=== PATIENT | male | born 1945 | race Caucasian/White ===

== ENCOUNTER 2016-07-26 08:58 | Outpatient (CLI) | payer MEDICARE, BC | END 2016-07-26 08:59 | disposition home or self-care (01) | DX: E11.9 Type 2 diabetes mellitus without complications (principal); E78.2 Mixed hyperlipidemia; I10 Essential (primary) hypertension; Z79.899 Other long term (current) drug therapy | CPT/HCPCS: 36415; 80053; 80061; 83036; 84443; 85025; G0103 ==

== ENCOUNTER 2016-12-06 06:15 | Day surgery (SDC) | payer MEDICARE, BC ==
[2016-12-06] MEDS ORDERED: LACTATED RINGERS 1,000 ML IV ONE (06:35)
[2016-12-06] MEDS ORDERED: MIDAZOLAM 2 MG/2 ML VIAL IVP ONE (07:37)
[2016-12-06] MEDS ORDERED: fentaNYL 100 MCG/2 ML VIAL IVP ONE (07:37)
[2016-12-06 08:52] VITALS: BP 134/68
== END 2016-12-06 06:16 | disposition home or self-care (01) ==
LOC: SDS 06:15
PROVIDERS: ATTEND Surgery
PROC: 0DJD8ZZ Inspection of Lower Intestinal Tract, Via Natural or Artificial Opening Endoscopic (ICD-10-PCS; principal; 2016-12-06 07:30)
DX: Z12.11 Encounter for screening for malignant neoplasm of colon (principal); Z86.010 Personal history of colon polyps; K64.8 Other hemorrhoids; E11.9 Type 2 diabetes mellitus without complications; E78.5 Hyperlipidemia, unspecified; I25.10 Atherosclerotic heart disease of native coronary artery without angina pectoris; I25.2 Old myocardial infarction; G47.33 Obstructive sleep apnea (adult) (pediatric); Z79.4 Long term (current) use of insulin; Z79.82 Long term (current) use of aspirin
CPT/HCPCS: G0105; J7120

== ENCOUNTER 2017-01-25 07:23 | Outpatient (CLI) | payer MEDICARE, BC ==
[2017-01-25 12:31] LABS: HEMOGLOBIN A1C 1.36 g/dL
== END 2017-01-25 07:24 | disposition home or self-care (01) ==
LOC: LAB.F 07:23
PROVIDERS: ATTEND Internal Medicine
DX: E11.9 Type 2 diabetes mellitus without complications (principal)
CPT/HCPCS: 36415; 83036

== ENCOUNTER 2017-04-06 15:45 | Outpatient (CLI) | payer MEDICARE, BC | END 2017-04-06 23:59 | LOC: LAB.R 15:45 | PROVIDERS: ATTEND Internal Medicine | DX: Z01.818 Encounter for other preprocedural examination (principal); E10.9 Type 1 diabetes mellitus without complications | CPT/HCPCS: 87640 ==

== ENCOUNTER 2017-04-07 10:00 | Outpatient (CLI) | payer MEDICARE, BC ==
[2017-04-07 18:30] LABS: BASOPHILS # (AUTO) 0.1 10^3/uL (0.0-0.1); BASOPHILS % (AUTO) 0.8 %; EOSINOPHILS # (AUTO) 0.1 10^3/uL (0.0-0.7); EOSINOPHILS % (AUTO) 1.2 %; HGB - HEMOGLOBIN 14.5 g/dL (14.0-18.0); LYMPHOCYTES # (AUTO) 2.9 10^3/uL (1.5-3.5); LYMPHOCYTES % (AUTO) 33.6 %; MEAN CORPUSCULAR HEMOGLOBIN 30.1 pg (27.0-31.0); MEAN CORPUSCULAR VOLUME 91.3 fL (80.0-94.0); MEAN PLATELET VOLUME 9.5 fL (7.4-11.4); MONOCYTES # (AUTO) 0.7 10^3/uL (0.0-1.0); MONOCYTES % (AUTO) 8.6 %; NEUTROPHILS # (AUTO) 4.8 10^3/uL (1.5-6.6); NEUTROPHILS % (AUTO) 55.8 %; RED BLOOD COUNT 4.81 10^6/uL (4.70-6.10); RED CELL DISTRIBUTION WIDTH 13.2 % (12.0-15.0); UNCORRECTED WHITE BLOOD COUNT 8.6 x10^3/uL; WHITE BLOOD COUNT 8.6 x10^3/uL (4.8-10.8)
[2017-04-07 18:50] LABS: ALBUMIN/GLOBULIN RATIO 1.1 (1.0-2.2); BILIRUBIN,TOTAL 0.7 mg/dL (0.2-1.0); CALCIUM 9.2 mg/dL (8.5-10.3); CREATININE 0.8 mg/dL (0.6-1.2); POTASSIUM 3.9 mmol/L (3.5-5.0); TOTAL PROTEIN 7.3 g/dL (6.7-8.2)
== END 2017-04-07 10:01 | disposition home or self-care (01) ==
LOC: LAB.F 10:00
PROVIDERS: ATTEND Internal Medicine
DX: E10.9 Type 1 diabetes mellitus without complications (principal)
CPT/HCPCS: 36415; 80053; 85025

== ENCOUNTER 2017-09-01 07:24 | Outpatient (CLI) | payer MEDICARE, BC ==
[2017-09-01 10:37] LABS: ALBUMIN 4.4 g/dL (3.2-5.5); ALBUMIN/GLOBULIN RATIO 1.6 (1.0-2.2); ALKALINE PHOSPHATASE 43 IU/L (42-121); ALT ALANINE AMINOTRANSFERASE 42 IU/L (10-60); AST ASPARTATE AMINOTRANSFERASE 30 IU/L (10-42); BUN - BLOOD UREA NITROGEN 18 mg/dL (6-20); CALCIUM 9.1 mg/dL (8.5-10.3); CARBON DIOXIDE - CO2 26 mmol/L (21-32); CHLORIDE 104 mmol/L (101-111); CHOL/HDL RATIO 2.7 (<5.0); CHOLESTEROL 114 mg/dL; CREATININE 0.8 mg/dL (0.6-1.2); GFR - MDRD 96 (>89); GLUCOSE 140 mg/dL (70-100); HDL CHOLESTEROL 42 mg/dL; LDL CHOLESTEROL,CALCULATED 59 mg/dL; LDL/HDL RATIO 1.4 (<3.6); SODIUM 137 mmol/L (135-145); TOTAL PROTEIN 7.1 g/dL (6.7-8.2); VLDL CHOLESTEROL 13 mg/dL
[2017-09-01 10:45] LABS: BASOPHILS % (AUTO) 0.7 %; EOSINOPHILS # (AUTO) 0.3 10^3/uL (0.0-0.7); EOSINOPHILS % (AUTO) 3.8 %; HGB - HEMOGLOBIN 14.7 g/dL (14.0-18.0); LYMPHOCYTES # (AUTO) 1.9 10^3/uL (1.5-3.5); LYMPHOCYTES % (AUTO) 28.8 %; MEAN CORPUSCULAR HEMOGLOBIN 30.2 pg (27.0-31.0); MEAN CORPUSCULAR HGB CONC 33.8 g/dL (32.0-36.0); MEAN CORPUSCULAR VOLUME 89.4 fL (80.0-94.0); MEAN PLATELET VOLUME 9.3 fL (7.4-11.4); MONOCYTES # (AUTO) 0.7 10^3/uL (0.0-1.0); MONOCYTES % (AUTO) 10.5 %; NEUTROPHILS # (AUTO) 3.8 10^3/uL (1.5-6.6); NEUTROPHILS % (AUTO) 56.2 %; PLT - PLATELET COUNT 191 10^3/uL (130-450); RED BLOOD COUNT 4.87 10^6/uL (4.70-6.10); RED CELL DISTRIBUTION WIDTH 13.5 % (12.0-15.0); WHITE BLOOD COUNT 6.7 x10^3/uL (4.8-10.8)
[2017-09-01 10:53] LABS: HB2 TOTAL 16.3 g/dL; HEMOGLOBIN A1C 0.97 g/dL; HEMOGLOBIN A1C % 7.6 % (4.6-6.2)
[2017-09-02 09:02] LABS: HEPATITIS C ANTIBODY NON-REACTIVE (NON-REACTIVE)
== END 2017-09-01 07:25 | disposition home or self-care (01) ==
LOC: LAB.F 07:24
PROVIDERS: ATTEND Internal Medicine
DX: C43.30 Malignant melanoma of unspecified part of face (principal); E10.9 Type 1 diabetes mellitus without complications; I25.10 Atherosclerotic heart disease of native coronary artery without angina pectoris; E78.5 Hyperlipidemia, unspecified
CPT/HCPCS: 36415; 80053; 80061; 83036; 83721; 85025; 86803

== ENCOUNTER 2017-12-12 07:43 | Outpatient (CLI) | payer MEDICARE, BC ==
[2017-12-12 12:06] LABS: ALT ALANINE AMINOTRANSFERASE 39 IU/L (10-60); AST ASPARTATE AMINOTRANSFERASE 28 IU/L (10-42); LDL CHOLESTEROL,DIRECT 71 mg/dL
[2017-12-12 12:11] LABS: HB2 TOTAL 15.7 g/dL; HEMOGLOBIN A1C 0.89 g/dL; HEMOGLOBIN A1C % 7.3 % (4.6-6.2)
== END 2017-12-12 07:44 | disposition home or self-care (01) ==
LOC: LAB.F 07:43
PROVIDERS: ATTEND Internal Medicine
DX: E78.5 Hyperlipidemia, unspecified (principal); E10.9 Type 1 diabetes mellitus without complications
CPT/HCPCS: 36415; 83036; 83721; 84450; 84460

== ENCOUNTER 2018-03-17 12:41 | Outpatient (CLI) | payer MEDICARE, BC ==
[2018-03-17 18:14] LABS: HB2 TOTAL 15.3 g/dL; HEMOGLOBIN A1C 0.88 g/dL; HEMOGLOBIN A1C % 7.4 % (4.6-6.2)
== END 2018-03-17 12:42 | disposition home or self-care (01) ==
LOC: LAB.F 12:41
PROVIDERS: ATTEND Internal Medicine
DX: E10.9 Type 1 diabetes mellitus without complications (principal)
CPT/HCPCS: 36415; 83036

== ENCOUNTER 2018-04-27 18:44 | Inpatient (IN) | payer MEDICARE, BC ==
[2018-04-27 19:35] LABS: BASOPHILS % (AUTO) 0.3 %; HGB - HEMOGLOBIN 14.6 g/dL (14.0-18.0); LYMPHOCYTES % (AUTO) 3.7 %; MEAN CORPUSCULAR HEMOGLOBIN 30.8 pg (27.0-31.0); MEAN CORPUSCULAR VOLUME 90.7 fL (80.0-94.0); MEAN PLATELET VOLUME 8.6 fL (7.4-11.4); PLT - PLATELET COUNT 194 10^3/uL (130-450); RED BLOOD COUNT 4.72 10^6/uL (4.70-6.10); RED CELL DISTRIBUTION WIDTH 13.4 % (12.0-15.0); WHITE BLOOD COUNT 20.3 x10^3/uL (4.8-10.8)
[2018-04-27 19:38] LABS: ABNORMAL LYMPHS % (MANUAL) 0 %
[2018-04-27 19:41] LABS: ALBUMIN/GLOBULIN RATIO 1.2 (1.0-2.2); ALKALINE PHOSPHATASE 42 IU/L (42-121); ALT ALANINE AMINOTRANSFERASE 30 IU/L (10-60); AST ASPARTATE AMINOTRANSFERASE 34 IU/L (10-42); BILIRUBIN,TOTAL 1.7 mg/dL (0.2-1.0); BUN - BLOOD UREA NITROGEN 23 mg/dL (6-20); CARBON DIOXIDE - CO2 23 mmol/L (21-32); CHLORIDE 99 mmol/L (101-111); CREATININE 1.1 mg/dL (0.6-1.2); GFR - MDRD 66 (>89); GLUCOSE 185 mg/dL (70-100); LIPASE 22 U/L (22-51); SODIUM 133 mmol/L (135-145); TOTAL PROTEIN 7.3 g/dL (6.7-8.2)
--- NOTE | 2018-04-27 20:08 | ED Physician Documentation ---
History of Present Illness - Stated complaint Stated Complaint: DIABETIC/FEVER/SWOLLEN L LEG - Chief complaint Chief Complaint: Neuro - History obtained from History obtained from: Family - History of Present Illness Timing: Last night Pain level now: 6 Improved by: nothing Worsened by: no exacerbating factors - Additonal information Additional information: lethargic since last night with sweats/chills. Family noted Tmax of 103 earlier today (approximately 5 PM today). he has had left leg redness since Tuesday. patient's chief c/o is generalized weakness and severe fatigue. Family says he is usually very active Review of Systems Constitutional: reports: Fever, Chills, Fatigue, Sweats Eyes: reports: Reviewed and negative Ears: reports: Reviewed and negative Nose: reports: Reviewed and negative Throat: reports: Reviewed and negative Cardiac: reports: Reviewed and negative Respiratory: reports: Cough. denies: Dyspnea GI: reports: Reviewed and negative : denies: Dysuria, Frequency Skin: reports: Rash (LLE) Musculoskeletal: reports: Extremity pain (LLE), Extremity swelling Neurologic: reports: Generalized weakness, Altered mental status (lethargic). denies: Focal weakness, Numbness, Confused, Headache PD PAST MEDICAL HISTORY - Past Medical History Cardiovascular: Hypertension, Coronary artery disease, Angina Respiratory: Sleep apnea Endocrine/Autoimmune: Type 2 diabetes GI: None, Colon polyps : None HEENT: Macular degeneration Psych:  Musculoskeletal: Osteoarthritis Derm: None, Other - Past Surgical History General: Cholecystectomy, Colonoscopy Ortho: Spine surgery, Other Cardiovascular: CABG HEENT: Other Derm: Skin cancer surgery - Present Medications Home Medications: Ambulatory Orders Medication Instructions Recorded Confirmed Aspirin [Aspir 81] 81 mg PO QPM 07/16/14 10/03/17 Atorvastatin Calcium [Lipitor] 20 mg PO DAILY PM 07/16/14 10/03/17 Insulin Glargine,Hum.rec.anlog 40 unit SQ BID 07/16/14 10/03/17 [Lantus] Losartan [Cozaar] 50 mg PO BID 07/16/14 10/03/17 Multivitamin [Multi-Vitamin Daily] 1 tab PO DAILY 07/16/14 10/03/17 [place]-3 Fatty Acids/Fish Oil [Fish 2 each PO DAILY 07/16/14 10/03/17 Oil 1,000 mg Capsule] Fenofibrate Nanocrystallized 145 mg PO DAILY 12/03/16 10/03/17 [Fenofibrate] Sildenafil Citrate [Sildenafil] 80 - 100 mg PO PRN PRN 03/02/17 10/03/17 Insulin Aspart [Novolog] 5 unit SQ AC 04/06/17 10/03/17 - Allergies Allergies/Adverse Reactions: Allergies Allergy/AdvReac Type Severity Reaction Status Date / Time Horse/Equine Containing Allergy Respiratory Verified 04/27/18 19:19 Products metformin Allergy Edema Verified 04/27/18 19:19 Tetanus Vaccines and Toxoid Allergy Respiratory Verified 04/27/18 19:19 [Tetanus Vaccines & Toxoid] - Social History Does the pt smoke?: No Smoking Status: Former smoker Does the pt drink ETOH?: Yes Does the pt have substance abuse?: No - Immunizations Immunizations are current?: No - POLST Patient has POLST: No PD ED PE NORMAL - Vitals Vital signs reviewed: Yes - General General: Other (overweight. lethargic; he arouses to voice, answers quietly with short but appropriate answers. He follows commands but needs to be rewoken at times) - HEENT HEENT: PERRL, EOMI, Other (dry mucous membranes) - Neck Neck: Supple, no meningeal sign - Cardiac Cardiac: RRR, No murmur - Respiratory Respiratory: No respiratory distress, Clear bilaterally - Abdomen Abdomen: Normal bowel sounds, Soft, Non tender, Non distended - Extremities Extremities: No tenderness to palpate - Neuro Eye Opening: To Voice Motor: Obeys Commands Verbal: Oriented GCS Score: 14 PD ED PE EXPANDED - Extremities SOM LE visual: 1 - rash (confluent erythema, hot to touch), swelling, tenderness Results - Vitals Vitals: Vital Signs - 24 hr 04/27/18 04/27/18 18:57 22:17 Temperature 37 C Heart Rate 97 103 H Respiratory 25 H Rate Blood Pressure 143/70 H 106/64 O2 Saturation 94 96 Oxygen O2 Source Room air - Labs Labs: Laboratory Tests 04/27/18 04/27/18 04/27/18 19:04 19:13 19:13 WBC 20.3 H RBC 4.72 Hgb 14.6 Hct 42.8 MCV 90.7 MCH 30.8 MCHC 34.0 RDW 13.4 Plt Count 194 MPV 8.6 Neut # (Auto) Not Reportable Lymph # (Auto) Not Reportable Cannon # (Auto) Not Reportable Eos # (Auto) Not Reportable Baso # (Auto) Not Reportable Absolute Nucleated RBC Not Reportable Total Counted 100 Band Neuts % (Manual) 16 H Abnorm Lymph % (Manual) 0 Nucleated RBC % Not Reportable Neutrophils # (Manual) 18.7 H Lymphocytes # (Manual) 0.4 L Monocytes # (Manual) 1.2 H Eosinophils # (Manual) 0.0 Basophils # (Manual) 0.0 Differential Comment MANUAL DIFFERENTIAL Manual Slide Review Indicated WBC Morphology NORMAL APPEARANCE Platelet Estimate NORMAL (130-450,000) Platelet Morphology NORMAL APPEARANCE RBC Morph Micro Appear NORMAL APPEARANCE Sodium 133 L Potassium 3.4 L Chloride 99 L Carbon Dioxide 23 Anion Gap 11.0 BUN 23 H Creatinine 1.1 Estimated GFR (MDRD) 66 L Glucose 185 H POC Whole Bld Glucose 187 H Glycated Hemoglobin Estim Average Glucose Lactic Acid Calcium 9.0 Total Bilirubin 1.7 H AST 34 ALT 30 Alkaline Phosphatase 42 Total Protein 7.3 Albumin 4.0 Globulin 3.3 Albumin/Globulin Ratio 1.2 Lipase 22 Urine Color Urine Clarity Urine pH Ur Specific Hudson Urine Protein Urine Glucose (UA) Urine Ketones Urine Occult Blood Urine Nitrite Urine Bilirubin Urine Urobilinogen Ur Leukocyte Esterase Urine RBC Urine WBC Ur Squamous Epith Cells Urine Bacteria Ur Microscopic Review Urine Culture Comments Serum Ketones NEGATIVE Influenza A (Rapid) Influenza B (Rapid) 04/27/18 04/27/18 04/27/18 19:14 20:41 20:45 WBC RBC Hgb Hct MCV MCH MCHC RDW Plt Count MPV Neut # (Auto) Lymph # (Auto) Cannon # (Auto) Eos # (Auto) Baso # (Auto) Absolute Nucleated RBC Total Counted Band Neuts % (Manual) Abnorm Lymph % (Manual) Nucleated RBC % Neutrophils # (Manual) Lymphocytes # (Manual) Monocytes # (Manual) Eosinophils # (Manual) Basophils # (Manual) Differential Comment Manual Slide Review WBC Morphology Platelet Estimate Platelet Morphology RBC Morph Micro Appear Sodium Potassium Chloride Carbon Dioxide Anion Gap BUN Creatinine Estimated GFR (MDRD) Glucose POC Whole Bld Glucose Glycated Hemoglobin 7.4 H Estim Average Glucose 166 H Lactic Acid 1.5 Calcium Total Bilirubin AST ALT Alkaline Phosphatase Total Protein Albumin Globulin Albumin/Globulin Ratio Lipase Urine Color YELLOW Urine Clarity CLEAR Urine pH 7.0 Ur Specific Hudson 1.025 Urine Protein 100 H Urine Glucose (UA) NEGATIVE Urine Ketones NEGATIVE Urine Occult Blood SMALL H Urine Nitrite NEGATIVE Urine Bilirubin NEGATIVE Urine Urobilinogen 0.2 (NORMAL) Ur Leukocyte Esterase NEGATIVE Urine RBC 0-5 Urine WBC 0-3 Ur Squamous Epith Cells NONE SEEN Urine Bacteria None Seen Ur Microscopic Review INDICATED Urine Culture Comments NOT INDICATED Serum Ketones Influenza A (Rapid) Influenza B (Rapid) 04/27/18 21:46 WBC RBC Hgb Hct MCV MCH MCHC RDW Plt Count MPV Neut # (Auto) Lymph # (Auto) Cannon # (Auto) Eos # (Auto) Baso # (Auto) Absolute Nucleated RBC Total Counted Band Neuts % (Manual) Abnorm Lymph % (Manual) Nucleated RBC % Neutrophils # (Manual) Lymphocytes # (Manual) Monocytes # (Manual) Eosinophils # (Manual) Basophils # (Manual) Differential Comment Manual Slide Review WBC Morphology Platelet Estimate Platelet Morphology RBC Morph Micro Appear Sodium Potassium Chloride Carbon Dioxide Anion Gap BUN Creatinine Estimated GFR (MDRD) Glucose POC Whole Bld Glucose Glycated Hemoglobin Estim Average Glucose Lactic Acid Calcium Total Bilirubin AST ALT Alkaline Phosphatase Total Protein Albumin Globulin Albumin/Globulin Ratio Lipase Urine Color Urine Clarity Urine pH Ur Specific [place] Urine Protein Urine Glucose (UA) Urine Ketones Urine Occult Blood Urine Nitrite Urine Bilirubin Urine Urobilinogen Ur Leukocyte Esterase Urine RBC Urine WBC Ur Squamous Epith Cells Urine Bacteria Ur Microscopic Review Urine Culture Comments Serum Ketones Influenza A (Rapid) Negative Influenza B (Rapid) Negative - Rads (name of study) chest xray Radiology: Prelim report reviewed, See rad report PD MEDICAL DECISION MAKING - ED course Complexity details: reviewed results, re-evaluated patient, considered differential, d/w patient, d/w family Departure - Departure Disposition: 66 [facility] DC/Xfer Clinical Impression: Cellulitis of leg, left, Weakness Condition: Fair Discharge Date/Time: 04/27/18 23:30
[2018-04-27 20:14] LABS: BAND NEUTROPHILS % (MANUAL) 16 %; DIFFERENTIAL COMMENT MANUAL DIFFERENTIAL; LYMPHOCYTES # (MANUAL) 0.4 10^3/uL (1.5-3.5); LYMPHOCYTES % (MANUAL) 2 %; MONOCYTES # (MANUAL) 1.2 10^3/uL (0.0-1.0); NEUTROPHILS # (MANUAL) 18.7 10^3/uL (1.5-6.6); NEUTROPHILS % (MANUAL) 76 %; PLATELET ESTIMATE, MANUAL NORMAL (130-450,000) (NORMAL); PLATELET MORPHOLOGY NORMAL APPEARANCE (NORMAL); RBC MORPHOLOGY (MULTIPLE) NORMAL APPEARANCE (NORMAL)
[2018-04-27 20:32] LABS: KETONES, SERUM (ACETEST) NEGATIVE (NEGATIVE)
[2018-04-27] MEDS ORDERED: SODIUM CHLORIDE 0.9% 1,000 ML IV STA (20:39)
[2018-04-27 21:04] LABS: BILIRUBIN,URINE NEGATIVE (NEGATIVE); GLUCOSE, URINE (UA) NEGATIVE (NEGATIVE); KETONES,URINE (UA) NEGATIVE (NEGATIVE); LEUKOCYTE ESTERASE, URINE NEGATIVE (NEGATIVE); NITRITE,URINE NEGATIVE (NEGATIVE); OCCULT BLOOD,URINE SMALL (NEGATIVE); PROTEIN,URINE 100 mg/dL (NEGATIVE); UROBILINOGEN,URINE 0.2 (NORMAL) E.U./dL (NORMAL)
[2018-04-27 21:05] LABS: CLARITY,URINE CLEAR (CLEAR)
[2018-04-27] MEDS ORDERED: VANCOMYCIN INJ 1 GM in SODIUM CHLORIDE 0.9% 500 ML IV STA (21:10)
[2018-04-27] MEDS ORDERED: cefTRIAXone 1 GM in SODIUM CHLORIDE 0.9% MINIBAG 100 ML IV STA (21:11)
[2018-04-27 21:14] LABS: BACTERIA,URINE None Seen /HPF (None Seen); RBC,URINE 0-5 /HPF (0-5); SQUAMOUS EPITHELIAL CELL,UR NONE SEEN (<= Few)
--- NOTE | 2018-04-27 21:37 | XRAY Report ---
Reason: chest pain Procedure Date: 04/27/2018 Accession Number: [id number] / [id number] Procedure: XR - Chest 1 View X-Ray CPT Code: 32304 FULL RESULT: EXAM: CHEST RADIOGRAPHY EXAM DATE: 04/27/2018 09:09 PM. CLINICAL HISTORY: Chest pain. Fever. COMPARISON: XR RIBS UNILAT W/ PA CHEST MIN 3 VIEWS 07/04/2010 8:33 AM. TECHNIQUE: 1 view. FINDINGS: Lungs/Pleura: Hypoinflated lungs. No focal opacities evident. No pleural effusion. No pneumothorax. Elevated right hemidiaphragm. Mediastinum: Prior sternotomy. Within exam limitations, the cardiomediastinal contour is normal. Other: No bony abnormalities identified. IMPRESSION: Hypoinflation, otherwise unremarkable single view chest. RADIA
[2018-04-27] MEDS ORDERED: MORPHINE 2 MG/ML CARPUJECT IVP PRN (22:20)
[2018-04-27] MEDS ORDERED: ONDANSETRON 4 MG/2 ML VIAL IVP PRN (22:20)
[2018-04-27] MEDS ORDERED: PROCHLORPERAZINE 10 MG/2 ML VIAL IVP PRN (22:20)
[2018-04-27] MEDS ORDERED: PIPERACILLIN/TAZOBACTAM 3.375 GM in SODIUM CHLORIDE 0.9% MINIBAG 100 ML IV STA (22:23)
--- NOTE | 2018-04-27 22:29 | HISTORY & PHYSICAL EXAMINATION ---
Chief Complaint - Chief Complaint Chief Complaint: Left leg pain, redness, swelling and weakness History of Present Illness - Admitted From Admitted From:: Emergency department - History Obtained From Records Reviewed: Emergency department records History obtained from: Patient, patient's , and Dr. Osullivan, ED physician Exam Limitations: Patient is very lethargic but he was able to respond to questions and provi - History of Present Illness HPI Comment/Other: Patient is a 72-year-old male with a past medical history of type 2 diabetes, hypertension, hyperlipidemia, obesity, coronary artery disease status post CABG x4 in 2003 who is otherwise very active and healthy, but developed an abrasion on the lateral aspect of the left lower leg a few days ago, that began to demonstrate some surrounding erythema that has spread in the last 24 hours significantly becoming more swollen, painful, extending proximally, and causing significant weakness to the point that he is having a hard time ambulating or even communicating due to his lethargy and malaise. Most of the history is provided by his because he is so tired, and she states that she only became aware of the left leg redness about 2 days ago at which point it was limited to a surrounding erythema about the abrasion on the lateral aspect of the lower left leg but today when she saw it in the morning it had extended proximally up to the proximal third of the tibia.She also notes that the patient has become increasingly tired, lethargic to the extent that last night he did not come upstairs to go to bed but instead slept in the recliner downstairs all night long, which is not typical for him. He was unable to eat very much other than a small amount of chicken soup today. He had a difficult time ambulating and was not steady on his feet so she brought him to the emergency room for further evaluation. He was also noted to have a oral temperature of 103 F at home prior to going to the ER. In the emergency room, he was appreciated to have what appears to be a left lower extremity cellulitis, with an elevated WBC count, normal lactic acid, relatively normal vital signs but significantly lethargic. Blood cultures were drawn, he was given a dose of IV Rocephin and, and IV maintenance fluids were initiated and hospitalist service was called to admit the patient. History - Past Medical History Cardiovascular: reports: Hypertension, Coronary artery disease, Angina Respiratory: reports: Sleep apnea Endocrine/Autoimmune: reports: Type 2 diabetes GI: reports: None, Colon polyps : reports: None HEENT: reports: Macular degeneration Psych: Musculoskeletal: reports: Osteoarthritis Derm: reports: None, Other (Patient has a history of either squamous cell carcinoma or melanoma of the face, he does not remember which one) MRSA Hx?: No - Past Surgical History General: reports: Cholecystectomy, Colonoscopy Ortho: reports: Spine surgery, Other Cardiovascular: reports: CABG HEENT: reports: Other Derm: reports: Skin cancer surgery - Family & Social History Family History: Mother: , Father: , CAD, CVA/TIA, Diabetes, Type 2, Hyperlipidemia, Hypertension, Sister: Alcoholism, Brother: Alcoholism Living arrangement: At home Living Situation: With spouse/s.o., With family Social History Notes: 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 He currently lives in [place] with his and adult son. He lives on [address] and has several animals on the property and is usually very active and caring for them. His notes that he is quite stubborn, and though he does see Dr. Ron for primary care, he was reluctant to come to the emergency room for the care of this acute problem until she essentially forced him to come in. - Substance History Use: Uses substance without health or social issues: NONE - POLST Patient has POLST: No POLST Status: Full Code Meds/Allgy - Home Medications Home Medications: Ambulatory Orders Medication Instructions Recorded Confirmed Aspirin [Aspir 81] 81 mg PO QPM 07/16/14 10/03/17 Atorvastatin Calcium [Lipitor] 20 mg PO DAILY PM 07/16/14 10/03/17 Insulin Glargine,Hum.rec.anlog 40 unit SQ BID 07/16/14 10/03/17 [Lantus] Losartan [Cozaar] 50 mg PO BID 07/16/14 10/03/17 Multivitamin [Multi-Vitamin Daily] 1 tab PO DAILY 07/16/14 10/03/17 [place]-3 Fatty Acids/Fish Oil [Fish 2 each PO DAILY 07/16/14 10/03/17 Oil 1,000 mg Capsule] Fenofibrate Nanocrystallized 145 mg PO DAILY 12/03/16 10/03/17 [Fenofibrate] Sildenafil Citrate [Sildenafil] 80 - 100 mg PO PRN PRN 03/02/17 10/03/17 Insulin Aspart [Novolog] 5 unit SQ AC 04/06/17 10/03/17 - Allergies Allergies/Adverse Reactions: Allergies Allergy/AdvReac Type Severity Reaction Status Date / Time Horse/Equine Containing Allergy Respiratory Verified 04/27/18 19:19 Products metformin Allergy Edema Verified 04/27/18 19:19 Tetanus Vaccines and Toxoid Allergy Respiratory Verified 04/27/18 19:19 [Tetanus Vaccines & Toxoid] Review of Systems - Constitutional Constitutional: reports: Fatigue, Fever, Chills, Malaise, Weakness, Poor appetite, Diaphoresis, Night sweats - Cardiovascular Cariovascular: denies: Palpitations, Chest pain, Lightheadedness, Exertional dyspnea - Respiratory Respiratory: denies: Cough, SOB at rest, SOB with exertion - Gastrointestinal Gastrointestinal: denies: Abdominal pain, Change in bowel habits - Genitourinary Genitourinary: denies: Dysuria - Musculoskeletal Musculoskeletal: reports: Muscle weakness - Integumentary Integumentary: reports: Rash - Neurological Neurological: reports: General weakness. denies: Focal weakness - Hematologic/Lymphatic Hematologic/Lymphatic: denies: Petechiae, Recurrent infections Prior Level of Functionality: Very independent Exam - Vital Signs Reviewed Vital Signs: Yes Vital Signs: Vital Signs x48h Temp Pulse Resp BP Pulse Ox 04/27/18 22:17 103 H 106/64 96 04/27/18 18:57 37 C 97 25 H 143/70 H 94 - Physical Exam General Appearance: positive: Lethargic Eyes Bilateral: positive: Normal inspection, No scleral icterus ENT: positive: ENT inspection nml Neck: positive: Nml inspection Respiratory: positive: Chest non-tender, Breath sounds nml. negative: Wheezes, Rales, Rhonchi Cardiovascular: positive: Regular rate & rhythm, No murmur, No gallop Peripheral Pulses: positive: 2+ Abdomen: positive: Non-tender, No organomegaly, Nml bowel sounds, No distention Skin: positive: Diaphoresis, Other (The left lower extremity demonstrates an abrasion on the lateral aspect of the left lower leg with surrounding erythema that extends from the wound primarily on the anterior aspect of the left leg proximally upwards to the proximal one third of the tibia. There is significant circumferential edema as well, 2+ pitting, warm to touch, and generally tender. He also has a tinea-like groin rash predominantly on the left side) Neurologic/Psychiatric: positive: Oriented x3, CN's nml (2-12) Sepsis Event Note (H) - Evaluation Current Stage of Sepsis: Ruled out Conclusion/Plan - Problem List (1) Cellulitis of leg, left Conclusion/Plan: Patient sustained an abrasion as he brushed up against a old tool and this is likely the source of the infection leading to cellulitis in the left lower leg. Patient is very confident his last tetanus vaccination was approximately 2 years ago, so at this point I will hold off on tetanus vaccination or immunoglobulin. His left leg however is significantly erythematous, very tender, and given the T-max of 103 F documented at home, along with soft blood pressures, and significant lethargy and change in energy I agree that the patient needs to be admitted for IV antibiotics initially until a significant clinical response can be appreciated. Blood cultures are pending, but at this point he does not meet criteria for sepsis but given the significant lethargy I would say he does meet criteria for SIRS and will be monitored closely.Empiric antibiotics will be IV Zosyn and vancomycin pending cultures. (2) SIRS (systemic inflammatory response syndrome) Conclusion/Plan: As stated above, we will continue pressure support with IV fluids, IV antibiotics, and monitor closely. (3) Weakness Conclusion/Plan: Weakness is likely due to the infection, seems to be improving somewhat already after IV fluids in the ER (4) Hypertension Conclusion/Plan: Blood pressure is well controlled now, will resume antihypertensives in the morning if his blood pressure increases otherwise will hold antihypertensives Qualifiers: Hypertension type: essential hypertension Qualified Code(s): I10 - Essential (primary) hypertension (5) Hyperlipidemia Conclusion/Plan: Continue home statin in the morning Qualifiers: Hyperlipidemia type: pure hypercholesterolemia Qualified Code(s): E78.00 - Pure hypercholesterolemia, unspecified; E78.0 - Pure hypercholesterolemia (6) CAD (coronary artery disease) Conclusion/Plan: Given his significant coronary artery disease, could consider echocardiogram in the morning if he does not show improvement with respect to the lethargy, but at this point I do not think this is related to any cardiac etiology. (7) Insulin dependent diabetes mellitus Conclusion/Plan: Blood sugars typically well controlled per the patient. He states that he cannot take Lantus because of the horse serum component of it, despite the fact that it is on his medication list. Given that he has not eaten all day, and we will not likely be eating very well for at least 1 more day, now and start with corrective insulin only until he starts increasing his diet or unless blood sugars become regularly in the 250-300 range. - Lab Results Lab results reviewed: Yes Bryce Bones: 04/27/18 19:13 04/27/18 19:13 - Diagnostic Imaging Results Diagnostic Imaging Results: positive: Final report reviewed Core Measures - Anticipated LOS I expect patient to be DC'd or transferred within 96 hours.: Yes - DVT/VTE - Prophylaxis VTE/DVT Device ordered at admit?: Yes
[2018-04-27 22:53] LABS: HB2 TOTAL 16.6 g/dL; HEMOGLOBIN A1C 0.95 g/dL; HEMOGLOBIN A1C % 7.4 % (4.6-6.2)
[2018-04-27] MEDS ORDERED: VANCOMYCIN PER PHARMACY 100 GM in SODIUM CHLORIDE 0.9% 250 ML IV SCH (23:00)
[2018-04-27] MEDS ORDERED: VANCOMYCIN INJ 0.75 GM in SODIUM CHLORIDE 0.9% 250 ML IV SCH (23:30)
[2018-04-27] MEDS: SODIUM CHLORIDE 0.9% 1,000 ML IV SCH (23:56)
[2018-04-28] MEDS: SODIUM CHLORIDE FLUSH 0.9% 10 ML SYRINGE IVP SCH ×3 (00:02→19:48)
[2018-04-28] MEDS: NYSTATIN POWDER 15 GM TOP SCH ×3 (00:32→20:42)
[2018-04-28 05:54] LABS: HGB - HEMOGLOBIN 13.1 g/dL (14.0-18.0); MEAN CORPUSCULAR HEMOGLOBIN 30.6 pg (27.0-31.0); MEAN CORPUSCULAR HGB CONC 33.4 g/dL (32.0-36.0); MEAN CORPUSCULAR VOLUME 91.7 fL (80.0-94.0); MEAN PLATELET VOLUME 8.8 fL (7.4-11.4); RED BLOOD COUNT 4.28 10^6/uL (4.70-6.10); RED CELL DISTRIBUTION WIDTH 13.5 % (12.0-15.0); WHITE BLOOD COUNT 19.7 x10^3/uL (4.8-10.8)
[2018-04-28 06:11] LABS: CALCIUM 8.4 mg/dL (8.5-10.3); CREATININE 1.2 mg/dL (0.6-1.2)
[2018-04-28] MEDS: SODIUM CHLORIDE FLUSH 0.9% 10 ML SYRINGE IVP PRN (06:53)
[2018-04-28] MEDS: PANTOPRAZOLE 40 MG VIAL IVP SCH (06:53)
[2018-04-28] MEDS ORDERED: PIPERACILLIN/TAZOBACTAM 3.375 GM in SODIUM CHLORIDE 0.9% MINIBAG 100 ML IV SCH (08:00)
[2018-04-28] MEDS: HYDROcod/ACETAM 5/325 MG TABLET PO PRN ×2 (09:13→23:21)
[2018-04-28] MEDS: SODIUM CHLORIDE 0.9% 1,000 ML IV SCH ×2 (11:00→22:16)
[2018-04-28] MEDS: OMEGA-3 ACID ETHYL ESTERS 1 GM CAPSULE PO SCH (11:01)
[2018-04-28] MEDS: IBUPROFEN 600 MG TABLET PO PRN (11:02)
[2018-04-28] MEDS: POTASSIUM CHLORIDE 20 MEQ TABLET PO ONE (11:02)
[2018-04-28] MEDS: POTASSIUM CHLORIDE 20 MEQ TABLET PO SCH (11:02)
[2018-04-28] MEDS: MULTIVITAMIN TABLET PO SCH (11:03)
[2018-04-28] MEDS: LOSARTAN 50 MG TABLET PO SCH ×2 (11:03→20:40)
[2018-04-28] MEDS: ENOXAPARIN 40 MG/0.4 ML SYRINGE SUBQ SCH (11:03)
[2018-04-28] MEDS: POLYETHYLENE GLYCOL 3350 17 GM PACKET PO SCH (11:03)
[2018-04-28] MEDS: INSULIN ASPART 300 UNIT/3 ML PEN SUBQ SCH ×4 (11:03→21:33)
[2018-04-28] MEDS: FENOFIBRATE 48 MG TABLET PO SCH (11:22)
[2018-04-28] MEDS ORDERED: VANCOMYCIN INJ 1.75 GM in SODIUM CHLORIDE 0.9% 500 ML IV SCH (15:00)
[2018-04-28] MEDS: PIPERACILLIN/TAZOBACTAM 3.375 GM in SODIUM CHLORIDE 0.9% MINIBAG 100 ML IV SCH ×2 (16:35→22:48)
--- NOTE | 2018-04-28 17:18 | PROVIDER PROGRESS NOTE ---
Subjective - Prog Note Date Prog Note Date: 04/28/18 Prog Note Time: 17:21 - Subjective Subjective: Patient was seen this morning, and this afternoon. His main complaint continues to be just "lethargy". He is exhausted. Has absolutely no appetite. He l aments the fact that he just loves food, but even the site of coffee puts him off. He denies chest pain, palpitations, shortness of breath. No diarrhea. No emesis. Just really tired, and his legs hurt. Pain is not out of proportion to physical exam. He is still having temperatures. He was 38.8 this morning. This afternoon he is 36.3. Blood pressure was 154/66 close to midnight last night. This morning he was 128/54. This afternoon he is 109/90. Current Medications - Current Medications Current Medications: Active Medications Hydrocodone Bitart/Acetaminophen ([place] 5/325) 1 tab PO Q4HR PRN PRN Reason: Pain 5 to 7 Last Admin: 04/28/18 09:13 Dose: 1 tab Aspirin (Ecotrin) 81 mg PO QPM [facility] Atorvastatin Calcium (Lipitor) 20 mg PO HS [facility] Enoxaparin Sodium (Lovenox) 40 mg SUBQ DAILY [facility] Last Admin: 04/28/18 11:03 Dose: 40 mg Fenofibrate (Tricor) 144 mg PO DAILY [facility] Last Admin: 04/28/18 11:22 Dose: 144 mg Sodium Chloride (Normal Saline 0.9%) 1,000 mls @ 125 mls/hr IV .Q8H [facility] Last Admin: 04/28/18 11:00 Dose: 125 mls/hr Piperacillin Sod/Tazobactam (Sod 3.375 gm/ Sodium Chloride) 100 mls @ 200 mls/hr IV Q6H [facility] Last Admin: 04/28/18 16:35 Dose: 200 mls/hr Vancomycin HCl 1.75 gm/ Sodium (Chloride) 500 mls @ 250 mls/hr IV Q18H [facility] Ibuprofen (Motrin) 600 mg PO Q6HR PRN PRN Reason: Pain 1 to 4 Last Admin: 04/28/18 11:02 Dose: 600 mg Insulin Aspart (Novolog) 1 - 9 unit SUBQ 0800,1200,1700,2100 [facility]; Protocol Last Admin: 04/28/18 11:26 Dose: 1 unit Losartan Potassium (Cozaar) 50 mg PO BID [facility] Last Admin: 04/28/18 11:03 Dose: 50 mg Morphine Sulfate (Morphine (Carpuject)) 2 mg IVP Q2HR PRN PRN Reason: Pain 8 to 10 Multivitamins (Theragran) 1 tab PO DAILY [facility] Last Admin: 04/28/18 11:03 Dose: 1 tab Nystatin (Nystop) 0 applic TOP BID [facility] Last Admin: 04/28/18 11:04 Dose: 1 applic [id number] Ethyl Esters (Lovaza) 2 gm PO DAILY [facility] Last Admin: 04/28/18 11:01 Dose: 2 gm Ondansetron HCl (Zofran Inj) 4 mg IVP Q6HR PRN PRN Reason: Nausea / Vomiting Pantoprazole Sodium (Protonix) 40 mg IVP QDAC [facility] Last Admin: 04/28/18 06:53 Dose: 40 mg Polyethylene Glycol (Miralax) 17 gm PO DAILY [facility] Last Admin: 04/28/18 11:03 Dose: 17 gm Potassium Chloride (K-Dur) 20 meq PO DAILYWM [facility] Last Admin: 04/28/18 11:02 Dose: 20 meq Prochlorperazine Edisylate (Compazine Inj) 10 mg IVP Q6HR PRN PRN Reason: Nausea / Vomiting Sodium Chloride (Normal Saline Flush 0.9%) 10 ml IVP PRN PRN PRN Reason: NEEDED PER PROVIDER ORDERS Last Admin: 04/28/18 06:53 Dose: 10 ml Sodium Chloride (Normal Saline Flush 0.9%) 10 ml IVP 0100,0900,1700 [facility] Last Admin: 04/28/18 11:04 Dose: 10 ml Aspirin [Aspir 81] 81 mg PO QPM 07/16/14 Insulin Glargine,Hum.rec.anlog [Lantus] 40 unit SQ BID 07/16/14 Losartan [Cozaar] 50 mg PO BID 07/16/14 Multivitamin [Multi-Vitamin Daily] 1 tab PO DAILY 07/16/14 Zimmerman-3 Fatty Acids/Fish Oil [Fish Oil 1,000 mg Capsule] 2 each PO DAILY 07/16/14 Fenofibrate Nanocrystallized [Fenofibrate] 145 mg PO DAILY 12/03/16 Insulin Aspart [Novolog] 9 - 13 unit SQ AC 04/06/17 Rosuvastatin Calcium [Crestor] 10 mg PO DAILY 04/28/18 Objective - Vital Signs/Intake & Output Reviewed Vital Signs: Yes Vital Signs: Vital Signs x48h Temp Pulse Resp BP Pulse Ox 04/28/18 16:00 36.3 C L 80 20 109/90 H 97 Intake & Output: Intake & Output 04/25/18 04/26/18 04/27/18 04/28/18 23:59 23:59 23:59 23:59 Intake Total 1600 2250 Output Total 825 Balance 1600 1425 - Objective General Appearance: positive: Alert, Mild distress (From leg pain.) Eyes Bilateral: positive: PERRL, EOMI ENT: positive: Dry mucous membranes Neck: positive: No JVD. negative: Stiff neck, Carotid bruit Respiratory: positive: Chest non-tender. negative: Wheezes, Rales, Rhonchi Cardiovascular: positive: Regular rate & rhythm, Systolic murmur. negative: Gallop/S4, Friction rub Abdomen: positive: Non-tender, No organomegaly, Nml bowel sounds, No distention Extremities: positive: Full ROM Neurologic/Psychiatric: positive: Oriented x3, CN's nml (2-12), Motor nml, S ensation nml - Lab Results Fish Bones: 04/28/18 05:10 04/28/18 05:10 Other Labs: Lab Results x24hrs 04/28/18 04/28/18 04/28/18 Range/Units 16:44 11:17 07:25 WBC (4.8-10.8) x10^3/uL RBC (4.70-6.10) 10^6/uL Hgb (14.0-18.0) g/dL Hct (42.0-52.0) % MCV (80.0-94.0) fL MCH (27.0-31.0) pg MCHC (32.0-36.0) g/dL RDW (12.0-15.0) % Plt Count (130-450) 10^3/uL MPV (7.4-11.4) fL Neut # (Auto) Lymph # (Auto) [place] # (Auto) Eos # (Auto) Baso # (Auto) Absolute Nucleated RBC Total Counted Band Neuts % (Manual) (0 - 10) % Abnorm Lymph % (Manual) % Nucleated RBC % Neutrophils # (Manual) (1.5-6.6) 10^3/uL Lymphocytes # (Manual) (1.5-3.5) 10^3/uL Monocytes # (Manual) (0.0-1.0) 10^3/uL Eosinophils # (Manual) (0-0.7) 10^3/uL Basophils # (Manual) (0-0.1) 10^3/uL Differential Comment Manual Slide Review WBC Morphology (NORMAL) Platelet Estimate (NORMAL) Platelet Morphology (NORMAL) RBC Morph Micro Appear (NORMAL) Sodium (135-145) mmol/L Potassium (3.5-5.0) mmol/L Chloride (101-111) mmol/L Carbon Dioxide (21-32) mmol/L Anion Gap (6-13) BUN (6-20) mg/dL Creatinine (0.6-1.2) mg/dL Estimated GFR (MDRD) (>89) Glucose (70-100) mg/dL POC Whole Bld Glucose 165 H 148 H 142 H (70 - 100) mg/dL Glycated Hemoglobin (4.6-6.2) % Estim Average Glucose (70-100) Lactic Acid (0.5-2.2) mmol/L Calcium (8.5-10.3) mg/dL Total Bilirubin (0.2-1.0) mg/dL AST (10-42) IU/L ALT (10-60) IU/L Alkaline Phosphatase (42-121) IU/L Total Protein (6.7-8.2) g/dL Albumin (3.2-5.5) g/dL Globulin (2.1-4.2) g/dL Albumin/Globulin Ratio (1.0-2.2) Lipase (22-51) U/L Urine Color Urine Clarity (CLEAR) Urine pH (5.0-7.5) PH Ur Specific [place] (1.002-1.030) Urine Protein (NEGATIVE) mg/dL Urine Glucose (UA) (NEGATIVE) mg/dL Urine Ketones (NEGATIVE) mg/dL Urine Occult Blood (NEGATIVE) Urine Nitrite (NEGATIVE) Urine Bilirubin (NEGATIVE) Urine Urobilinogen (NORMAL) E.U./dL Ur Leukocyte Esterase (NEGATIVE) Urine RBC (0-5) /HPF Urine WBC (0-3) /HPF Ur Squamous Epith Cells (<= Few) Urine Bacteria (None Seen) /HPF Ur Microscopic Review Urine Culture Comments Serum Ketones (NEGATIVE) Influenza A (Rapid) (Negative) Influenza B (Rapid) (Negative) 04/28/18 04/28/18 04/27/18 Range/Units 05:10 05:10 21:46 WBC 19.7 H (4.8-10.8) x10^3/uL RBC 4.28 L (4.70-6.10) 10^6/uL Hgb 13.1 L (14.0-18.0) g/dL Hct 39.2 L (42.0-52.0) % MCV 91.7 (80.0-94.0) fL MCH 30.6 (27.0-31.0) pg MCHC 33.4 (32.0-36.0) g/dL RDW 13.5 (12.0-15.0) % Plt Count 175 (130-450) 10^3/uL MPV 8.8 (7.4-11.4) fL Neut # (Auto) Lymph # (Auto) [place] # (Auto) Eos # (Auto) Baso # (Auto) Absolute Nucleated RBC Total Counted Band Neuts % (Manual) (0 - 10) % Abnorm Lymph % (Manual) % Nucleated RBC % Neutrophils # (Manual) (1.5-6.6) 10^3/uL Lymphocytes # (Manual) (1.5-3.5) 10^3/uL Monocytes # (Manual) (0.0-1.0) 10^3/uL Eosinophils # (Manual) (0-0.7) 10^3/uL Basophils # (Manual) (0-0.1) 10^3/uL Differential Comment Manual Slide Review WBC Morphology (NORMAL) Platelet Estimate (NORMAL) Platelet Morphology (NORMAL) RBC Morph Micro Appear (NORMAL) Sodium 135 (135-145) mmol/L Potassium 3.3 L (3.5-5.0) mmol/L Chloride 106 (101-111) mmol/L Carbon Dioxide 21 (21-32) mmol/L Anion Gap 8.0 (6-13) BUN 22 H (6-20) mg/dL Creatinine 1.2 (0.6-1.2) mg/dL Estimated GFR (MDRD) 60 L (>89) Glucose 147 H (70-100) mg/dL POC Whole Bld Glucose (70 - 100) mg/dL Glycated Hemoglobin (4.6-6.2) % Estim Average Glucose (70-100) Lactic Acid (0.5-2.2) mmol/L Calcium 8.4 L (8.5-10.3) mg/dL Total Bilirubin (0.2-1.0) mg/dL AST (10-42) IU/L ALT (10-60) IU/L Alkaline Phosphatase (42-121) IU/L Total Protein (6.7-8.2) g/dL Albumin (3.2-5.5) g/dL Globulin (2.1-4.2) g/dL Albumin/Globulin Ratio (1.0-2.2) Lipase (22-51) U/L Urine Color Urine Clarity (CLEAR) Urine pH (5.0-7.5) PH Ur Specific [place] (1.002-1.030) Urine Protein (NEGATIVE) mg/dL Urine Glucose (UA) (NEGATIVE) mg/dL Urine Ketones (NEGATIVE) mg/dL Urine Occult Blood (NEGATIVE) Urine Nitrite (NEGATIVE) Urine Bilirubin (NEGATIVE) Urine Urobilinogen (NORMAL) E.U./dL Ur Leukocyte Esterase (NEGATIVE) Urine RBC (0-5) /HPF Urine WBC (0-3) /HPF Ur Squamous Epith Cells (<= Few) Urine Bacteria (None Seen) /HPF Ur Microscopic Review Urine Culture Comments Serum Ketones (NEGATIVE) Influenza A (Rapid) Negative (Negative) Influenza B (Rapid) Negative (Negative) 04/27/18 04/27/18 04/27/18 Range/Units 20:45 20:41 19:14 WBC (4.8-10.8) x10^3/uL RBC (4.70-6.10) 10^6/uL Hgb (14.0-18.0) g/dL Hct (42.0-52.0) % MCV (80.0-94.0) fL MCH (27.0-31.0) pg MCHC (32.0-36.0) g/dL RDW (12.0-15.0) % Plt Count (130-450) 10^3/uL MPV (7.4-11.4) fL Neut # (Auto) Lymph # (Auto) [place] # (Auto) Eos # (Auto) Baso # (Auto) Absolute Nucleated RBC Total Counted Band Neuts % (Manual) (0 - 10) % Abnorm Lymph % (Manual) % Nucleated RBC % Neutrophils # (Manual) (1.5-6.6) 10^3/uL Lymphocytes # (Manual) (1.5-3.5) 10^3/uL Monocytes # (Manual) (0.0-1.0) 10^3/uL Eosinophils # (Manual) (0-0.7) 10^3/uL Basophils # (Manual) (0-0.1) 10^3/uL Differential Comment Manual Slide Review WBC Morphology (NORMAL) Platelet Estimate (NORMAL) Platelet Morphology (NORMAL) RBC Morph Micro Appear (NORMAL) Sodium (135-145) mmol/L Potassium (3.5-5.0) mmol/L Chloride (101-111) mmol/L Carbon Dioxide (21-32) mmol/L Anion Gap (6-13) BUN (6-20) mg/dL Creatinine (0.6-1.2) mg/dL Estimated GFR (MDRD) (>89) Glucose (70-100) mg/dL POC Whole Bld Glucose (70 - 100) mg/dL Glycated Hemoglobin 7.4 H (4.6-6.2) % Estim Average Glucose 166 H (70-100) Lactic Acid 1.5 (0.5-2.2) mmol/L Calcium (8.5-10.3) mg/dL Total Bilirubin (0.2-1.0) mg/dL AST (10-42) IU/L ALT (10-60) IU/L Alkaline Phosphatase (42-121) IU/L Total Protein (6.7-8.2) g/dL Albumin (3.2-5.5) g/dL Globulin (2.1-4.2) g/dL Albumin/Globulin Ratio (1.0-2.2) Lipase (22-51) U/L Urine Color YELLOW Urine Clarity CLEAR (CLEAR) Urine pH 7.0 (5.0-7.5) PH Ur Specific [place] 1.025 (1.002-1.030) Urine Protein 100 H (NEGATIVE) mg/dL Urine Glucose (UA) NEGATIVE (NEGATIVE) mg/dL Urine Ketones NEGATIVE (NEGATIVE) mg/dL Urine Occult Blood SMALL H (NEGATIVE) Urine Nitrite NEGATIVE (NEGATIVE) Urine Bilirubin NEGATIVE (NEGATIVE) Urine Urobilinogen 0.2 (NORMAL) (NORMAL) E.U./dL Ur Leukocyte Esterase NEGATIVE (NEGATIVE) Urine RBC 0-5 (0-5) /HPF Urine WBC 0-3 (0-3) /HPF Ur Squamous Epith Cells NONE SEEN (<= Few) Urine Bacteria None Seen (None Seen) /HPF Ur Microscopic Review INDICATED Urine Culture Comments NOT INDICATED Serum Ketones (NEGATIVE) Influenza A (Rapid) (Negative) Influenza B (Rapid) (Negative) 04/27/18 04/27/18 04/27/18 Range/Units 19:13 19:13 19:04 WBC 20.3 H (4.8-10.8) x10^3/uL RBC 4.72 (4.70-6.10) 10^6/uL Hgb 14.6 (14.0-18.0) g/dL Hct 42.8 (42.0-52.0) % MCV 90.7 (80.0-94.0) fL MCH 30.8 (27.0-31.0) pg MCHC 34.0 (32.0-36.0) g/dL RDW 13.4 (12.0-15.0) % Plt Count 194 (130-450) 10^3/uL MPV 8.6 (7.4-11.4) fL Neut # (Auto) Not Reportable Lymph # (Auto) Not Reportable [place] # (Auto) Not Reportable Eos # (Auto) Not Reportable Baso # (Auto) Not Reportable Absolute Nucleated RBC Not Reportable Total Counted 100 Band Neuts % (Manual) 16 H (0 - 10) % Abnorm Lymph % (Manual) 0 % Nucleated RBC % Not Reportable Neutrophils # (Manual) 18.7 H (1.5-6.6) 10^3/uL Lymphocytes # (Manual) 0.4 L (1.5-3.5) 10^3/uL Monocytes # (Manual) 1.2 H (0.0-1.0) 10^3/uL Eosinophils # (Manual) 0.0 (0-0.7) 10^3/uL Basophils # (Manual) 0.0 (0-0.1) 10^3/uL Differential Comment MANUAL DIFFERENTIAL Manual Slide Review Indicated WBC Morphology NORMAL APPEARANCE (NORMAL) Platelet Estimate NORMAL (130-450,000) (NORMAL) Platelet Morphology NORMAL APPEARANCE (NORMAL) RBC Morph Micro Appear NORMAL APPEARANCE (NORMAL) Sodium 133 L (135-145) mmol/L Potassium 3.4 L (3.5-5.0) mmol/L Chloride 99 L (101-111) mmol/L Carbon Dioxide 23 (21-32) mmol/L Anion Gap 11.0 (6-13) BUN 23 H (6-20) mg/dL Creatinine 1.1 (0.6-1.2) mg/dL Estimated GFR (MDRD) 66 L (>89) Glucose 185 H (70-100) mg/dL POC Whole Bld Glucose 187 H (70 - 100) mg/dL Glycated Hemoglobin (4.6-6.2) % Estim Average Glucose (70-100) Lactic Acid (0.5-2.2) mmol/L Calcium 9.0 (8.5-10.3) mg/dL Total Bilirubin 1.7 H (0.2-1.0) mg/dL AST 34 (10-42) IU/L ALT 30 (10-60) IU/L Alkaline Phosphatase 42 (42-121) IU/L Total Protein 7.3 (6.7-8.2) g/dL Albumin 4.0 (3.2-5.5) g/dL Globulin 3.3 (2.1-4.2) g/dL Albumin/Globulin Ratio 1.2 (1.0-2.2) Lipase 22 (22-51) U/L Urine Color Urine Clarity (CLEAR) Urine pH (5.0-7.5) PH Ur Specific [place] (1.002-1.030) Urine Protein (NEGATIVE) mg/dL Urine Glucose (UA) (NEGATIVE) mg/dL Urine Ketones (NEGATIVE) mg/dL Urine Occult Blood (NEGATIVE) Urine Nitrite (NEGATIVE) Urine Bilirubin (NEGATIVE) Urine Urobilinogen (NORMAL) E.U./dL Ur Leukocyte Esterase (NEGATIVE) Urine RBC (0-5) /HPF Urine WBC (0-3) /HPF Ur Squamous Epith Cells (<= Few) Urine Bacteria (None Seen) /HPF Ur Microscopic Review Urine Culture Comments Serum Ketones NEGATIVE (NEGATIVE) Influenza A (Rapid) (Negative) Influenza B (Rapid) (Negative) ABX Reporting Has patient been on IV antibiotics over the past 48 hours?: Yes Sepsis Event Note (H) - Evaluation Current Stage of Sepsis: Ruled out Assessment/Plan - Problem List (1) Cellulitis of leg, left Impression: Patient sustained an abrasion as he brushed up against a old tool and this is likely the source of the infection leading to cellulitis in the left lower leg. Patient is very confident his last tetanus vaccination was approximately 2 years ago, so at this point I will hold off on tetanus vaccination or immunoglobulin. His left leg however is significantly erythematous, very tender, and given the T -max of 103 F documented at home, along with soft blood pressures, and significant lethargy and change in energy , patient needed to be admitted for IV antibiotics initially until a significant clinical response can be appreciated. Blood cultures received by lab and pending. He does not meet criteria for sepsis but given the significant lethargy I would say he does meet criteria for SIRS and will be monitored closely. Empiric antibiotics will be IV Zosyn and vancomycin pending cultures. Today he has no appetite, exhausted but no fever. Legs appear less red. Day #2 for abx. (2) SIRS (systemic inflammatory response syndrome) Conclusion/Plan: As stated above, we will continue pressure support with IV fluids, IV antibiotics, and monitor closely. BP 109 sytolic this afternoon. (3) Weakness Conclusion/Plan: Weakness is likely due to the infection, seems to be improving somewhat already after IV fluids in the ER but for the whole day he is exhausted, aches, just doesn't feel well. better than admit, but just not rebounding. (4) Hypertension Conclusion/Plan: Blood pressure is well controlled now, will resume antihypertensives if his blood pressure increases , otherwise continue to hold antihypertensives Qualifiers: Hypertension type: essential hypertension Qualified Code(s): I10 - Essential (primary) hypertension (5) Hyperlipidemia Conclusion/Plan: Continue home resumed Qualifiers: Hyperlipidemia type: pure hypercholesterolemia Qualified Code(s): E78.00 - Pure hypercholesterolemia, unspecified; E78.0 - Pure hypercholesterolemia (6) CAD (coronary artery disease) Conclusion/Plan: Given his significant coronary artery disease, could consider echocardiogram in the morning if he does not show improvement with respect to the lethargy, but at this point I do not think this is related to any cardiac etiology. still lethargic, but no sob. No echo yet. (7) Insulin dependent diabetes mellitus Conclusion/Plan: Blood sugars typically well controlled per the patient. He states that he cannot take Lantus because of the horse serum component of it, despite the fact that it is on his medication list. Given that he had not eaten all day on dy of admission, and still not hungry. His glucose yesterday was 187, 144, 142. Today's pain 142 148 and 165. He is not on any insulin. Plan: Add sliding scale low-dose coverage
[2018-04-28] MEDS: VANCOMYCIN INJ 1.75 GM in SODIUM CHLORIDE 0.9% 500 ML IV SCH (17:29)
[2018-04-28] MEDS: ATORVASTATIN 10 MG TABLET PO SCH (20:39)
[2018-04-28] MEDS: ASPIRIN EC 81 MG TABLET PO SCH (20:39)
[2018-04-29] MEDS: SODIUM CHLORIDE FLUSH 0.9% 10 ML SYRINGE IVP SCH ×3 (00:03→18:00)
[2018-04-29] MEDS: SODIUM CHLORIDE FLUSH 0.9% 10 ML SYRINGE IVP PRN ×2 (00:13→06:44)
[2018-04-29] MEDS: PIPERACILLIN/TAZOBACTAM 3.375 GM in SODIUM CHLORIDE 0.9% MINIBAG 100 ML IV SCH ×4 (05:22→22:42)
[2018-04-29 06:12] LABS: HGB - HEMOGLOBIN 12.8 g/dL (14.0-18.0); MEAN CORPUSCULAR HEMOGLOBIN 31.2 pg (27.0-31.0); MEAN CORPUSCULAR HGB CONC 33.5 g/dL (32.0-36.0); MEAN CORPUSCULAR VOLUME 93.2 fL (80.0-94.0); MEAN PLATELET VOLUME 8.7 fL (7.4-11.4); RED BLOOD COUNT 4.1 10^6/uL (4.70-6.10); RED CELL DISTRIBUTION WIDTH 13.5 % (12.0-15.0); WHITE BLOOD COUNT 14.5 x10^3/uL (4.8-10.8)
[2018-04-29 06:18] LABS: CALCIUM 8.2 mg/dL (8.5-10.3); CREATININE 0.8 mg/dL (0.6-1.2)
[2018-04-29] MEDS: HYDROcod/ACETAM 5/325 MG TABLET PO PRN ×2 (06:44→10:36)
[2018-04-29] MEDS: PANTOPRAZOLE 40 MG VIAL IVP SCH (06:44)
[2018-04-29] MEDS ORDERED: IOVERSOL 320 100 ML VIAL IVP ONE (09:04)
--- NOTE | 2018-04-29 10:17 | CT Report ---
Reason: cellulitis, diabetic, pain out of proportion Procedure Date: 04/29/2018 Accession Number: [id number] / [id number] Procedure: CT - Lower Extremity Left W/ CPT Code: FULL RESULT: EXAM: LEFT LOWER EXTREMITY CT WITH CONTRAST EXAM DATE: 04/29/2018 09:58 AM. CLINICAL HISTORY: Cellulitis, diabetic, pain out of proportion. COMPARISON: None. TECHNIQUE: Thin-section axial images were acquired of the lower extremity from the distal thigh to the foot after administration of intravenous contrast. IV contrast: Optiray 320, 100 mL. Post-processing: Coronal and sagittal reformats. Other: None. In accordance with CT protocol optimization, one or more of the following dose reduction techniques were utilized for this exam: automated exposure control, adjustment of mA and/or KV based on patient size, or use of iterative reconstructive technique. FINDINGS: Bones: Mild generalized osteopenia. No visible fracture. Joints: Mild osteoarthritis of the knee. Musculature: There is fatty atrophy of the medial head of the gastrocnemius suggestive of a prior high-grade tear. Other: There is subcutaneous edema surrounding the knee and calf which may indicate inflammation. There are no visible subcutaneous fluid collections to suggest abscess formation. IMPRESSION: 1. Extensive subcutaneous edema may indicate cellulitis. No appreciable abscess. 2. No bony destruction to suggest osteomyelitis. RADIA
[2018-04-29] MEDS: MULTIVITAMIN TABLET PO SCH (10:32)
[2018-04-29] MEDS: SODIUM CHLORIDE 0.9% 1,000 ML IV SCH ×3 (10:32→21:52)
[2018-04-29] MEDS: ENOXAPARIN 40 MG/0.4 ML SYRINGE SUBQ SCH (10:33)
[2018-04-29] MEDS: VANCOMYCIN INJ 1.75 GM in SODIUM CHLORIDE 0.9% 500 ML IV SCH (10:33)
[2018-04-29] MEDS: POLYETHYLENE GLYCOL 3350 17 GM PACKET PO SCH (10:33)
[2018-04-29] MEDS: POTASSIUM CHLORIDE 20 MEQ TABLET PO SCH (10:33)
[2018-04-29] MEDS: FENOFIBRATE 48 MG TABLET PO SCH (10:33)
[2018-04-29] MEDS: OMEGA-3 ACID ETHYL ESTERS 1 GM CAPSULE PO SCH (10:33)
[2018-04-29] MEDS: LOSARTAN 50 MG TABLET PO SCH ×2 (10:33→20:08)
[2018-04-29] MEDS: NYSTATIN POWDER 15 GM TOP SCH ×2 (10:34→22:25)
[2018-04-29] MEDS: INSULIN ASPART 300 UNIT/3 ML PEN SUBQ SCH ×4 (10:35→21:36)
[2018-04-29] MEDS: IBUPROFEN 600 MG TABLET PO PRN (12:18)
--- NOTE | 2018-04-29 12:55 | PROVIDER PROGRESS NOTE ---
Subjective - Prog Note Date Prog Note Date: 04/29/18 Prog Note Time: 14:50 - Subjective Subjective: More tired than he would like. No appetite. Left leg is painful. Especially in the groin and thigh region. The foot is just horribly painful every time he weight bears. The calf also just stings and levy all the time. He would have thought that he would have been better by now. He has a few open oozing areas now. Current Medications - Current Medications Current Medications: Active Medications Hydrocodone Bitart/Acetaminophen ([place] 5/325) 1 tab PO Q4HR PRN PRN Reason: Pain 5 to 7 Last Admin: 04/29/18 10:36 Dose: 1 tab Aspirin (Ecotrin) 81 mg PO QPM [facility] Last Admin: 04/28/18 20:39 Dose: 81 mg Atorvastatin Calcium (Lipitor) 20 mg PO HS [facility] Last Admin: 04/28/18 20:39 Dose: 20 mg Enoxaparin Sodium (Lovenox) 40 mg SUBQ DAILY [facility] Last Admin: 04/29/18 10:33 Dose: 40 mg Fenofibrate (Tricor) 144 mg PO DAILY [facility] Last Admin: 04/29/18 10:33 Dose: 144 mg Sodium Chloride (Normal Saline 0.9%) 1,000 mls @ 125 mls/hr IV .Q8H [facility] Last Admin: 04/29/18 10:34 Dose: 125 mls/hr Piperacillin Sod/Tazobactam (Sod 3.375 gm/ Sodium Chloride) 100 mls @ 200 mls/hr IV Q6H [facility] Last Infusion: 04/29/18 14:05 Dose: Infused Vancomycin HCl 1.75 gm/ Sodium (Chloride) 500 mls @ 250 mls/hr IV Q18H [facility] Last Infusion: 04/29/18 13:07 Dose: Infused Ibuprofen (Motrin) 600 mg PO Q6HR PRN PRN Reason: Pain 1 to 4 Last Admin: 04/29/18 12:18 Dose: 600 mg Insulin Aspart (Novolog) 1 - 9 unit SUBQ 0800,1200,1700,2100 [facility]; Protocol Last Admin: 04/29/18 12:18 Dose: 3 unit Losartan Potassium (Cozaar) 50 mg PO BID [facility] Last Admin: 04/29/18 10:33 Dose: 50 mg Morphine Sulfate (Morphine (Carpuject)) 2 mg IVP Q2HR PRN PRN Reason: Pain 8 to 10 Multivitamins (Theragran) 1 tab PO DAILY [facility] Last Admin: 04/29/18 10:32 Dose: 1 tab Nystatin (Nystop) 0 applic TOP BID [facility] Last Admin: 04/29/18 10:34 Dose: 1 applic [id number] Ethyl Esters (Lovaza) 2 gm PO DAILY [facility] Last Admin: 04/29/18 10:33 Dose: 2 gm Ondansetron HCl (Zofran Inj) 4 mg IVP Q6HR PRN PRN Reason: Nausea / Vomiting Pantoprazole Sodium (Protonix) 40 mg IVP QDAC [facility] Last Admin: 04/29/18 06:44 Dose: 40 mg Polyethylene Glycol (Miralax) 17 gm PO DAILY [facility] Last Admin: 04/29/18 10:33 Dose: 17 gm Potassium Chloride (K-Dur) 20 meq PO DAILYWM [facility] Last Admin: 04/29/18 10:33 Dose: 20 meq Prochlorperazine Edisylate (Compazine Inj) 10 mg IVP Q6HR PRN PRN Reason: Nausea / Vomiting Sodium Chloride (Normal Saline Flush 0.9%) 10 ml IVP PRN PRN PRN Reason: NEEDED PER PROVIDER ORDERS Last Admin: 04/29/18 06:44 Dose: 10 ml Sodium Chloride (Normal Saline Flush 0.9%) 10 ml IVP 0100,0900,1700 [facility] Last Admin: 04/29/18 10:35 Dose: 10 ml Aspirin [Aspir 81] 81 mg PO QPM 07/16/14 Insulin Glargine,Hum.rec.anlog [Lantus] 40 unit SQ BID 07/16/14 Losartan [Cozaar] 50 mg PO BID 07/16/14 Multivitamin [Multi-Vitamin Daily] 1 tab PO DAILY 07/16/14 [place]-3 Fatty Acids/Fish Oil [Fish Oil 1,000 mg Capsule] 2 each PO DAILY 07/16/14 Fenofibrate Nanocrystallized [Fenofibrate] 145 mg PO DAILY 12/03/16 Insulin Aspart [Novolog] 9 - 13 unit SQ AC 04/06/17 Rosuvastatin Calcium [Crestor] 10 mg PO DAILY 04/28/18 Objective - Vital Signs/Intake & Output Reviewed Vital Signs: Yes Vital Signs: Vital Signs x48h Temp Pulse Resp BP Pulse Ox 04/29/18 07:52 36.6 C 88 18 125/61 95 Intake & Output: Intake & Output 04/26/18 04/27/18 04/28/18 04/29/18 23:59 23:59 23:59 23:59 Intake Total 1600 4350.000 2204.167 Output Total 825 Balance 1600 3525.000 2204.167 - Objective General Appearance: positive: Alert, Moderate distress (from pain in leg), Other (obese white male looks stated age, at bedside) Eyes Bilateral: positive: PERRL, EOMI ENT: positive: Pharynx nml Neck: positive: No JVD Respiratory: positive: Chest non-tender. negative: Wheezes, Rales, Rhonchi Cardiovascular: positive: Regular rate & rhythm, Systolic murmur. negative: Gallop/S4, Friction rub Abdomen: positive: Non-tender, No organomegaly, Nml bowel sounds, No distention Skin: positive: Warm, Dry, Other (left leg skin red, hot, oozing small ulcers in cerain spoits, left groin full of nodes, thigh hurst too) Extremities: positive: Pedal edema Neurologic/Psychiatric: positive: Oriented x3, CN's nml (2-12), Motor nml, Weakness, Other (so so tired) - Lab Results Fish Bones: 04/29/18 05:40 04/29/18 05:40 Other Labs: Lab Results x24hrs 04/29/18 04/29/18 04/29/18 Range/Units 11:27 07:41 05:40 WBC (4.8-10.8) x10^3/uL RBC (4.70-6.10) 10^6/uL Hgb (14.0-18.0) g/dL Hct (42.0-52.0) % MCV (80.0-94.0) fL MCH (27.0-31.0) pg MCHC (32.0-36.0) g/dL RDW (12.0-15.0) % Plt Count (130-450) 10^3/uL MPV (7.4-11.4) fL Sodium 137 (135-145) mmol/L Potassium 4.0 (3.5-5.0) mmol/L Chloride 108 (101-111) mmol/L Carbon Dioxide 21 (21-32) mmol/L Anion Gap 8.0 (6-13) BUN 22 H (6-20) mg/dL Creatinine 0.8 (0.6-1.2) mg/dL Estimated GFR (MDRD) 95 (>89) Glucose 203 H (70-100) mg/dL POC Whole Bld Glucose 189 H 206 H (70 - 100) mg/dL Calcium 8.2 L (8.5-10.3) mg/dL 04/29/18 04/28/18 04/28/18 Range/Units 05:40 21:21 16:44 WBC 14.5 H (4.8-10.8) x10^3/uL RBC 4.10 L (4.70-6.10) 10^6/uL Hgb 12.8 L (14.0-18.0) g/dL Hct 38.2 L (42.0-52.0) % MCV 93.2 (80.0-94.0) fL MCH 31.2 H (27.0-31.0) pg MCHC 33.5 (32.0-36.0) g/dL RDW 13.5 (12.0-15.0) % Plt Count 136 (130-450) 10^3/uL MPV 8.7 (7.4-11.4) fL Sodium (135-145) mmol/L Potassium (3.5-5.0) mmol/L Chloride (101-111) mmol/L Carbon Dioxide (21-32) mmol/L Anion Gap (6-13) BUN (6-20) mg/dL Creatinine (0.6-1.2) mg/dL Estimated GFR (MDRD) (>89) Glucose (70-100) mg/dL POC Whole Bld Glucose 252 H 165 H (70 - 100) mg/dL Calcium (8.5-10.3) mg/dL ABX Reporting Has patient been on IV antibiotics over the past 48 hours?: Yes Sepsis Event Note (H) - Evaluation Current Stage of Sepsis: Ruled out Assessment/Plan - Problem List (1) Cellulitis of leg, left Impression: Patient sustained an abrasion as he brushed up against a old tool and this is likely the source of the infection leading to cellulitis in the left lower leg. Patient is very confident his last tetanus vaccination was approximately 2 years ago, so at this point I will hold off on tetanus vaccination or immunoglobulin. His left leg however is significantly erythematous, very tender, and given the T-max of 103 F documented at home, along with soft blood pressures, and significant lethargy and change in energy , patient needed to be admitted for IV antibiotics initially until a significant clinical response can be appreciated. Blood cultures received by lab and pending. He does not meet criteria for sepsis but given the significant lethargy I would say he does meet criteria for SIRS and will be monitored closely. Empiric antibiotics will be IV Zosyn and vancomycin pending cultures. He continues to have no appetite, exhausted but no fever. Legs appear less red. But his foot and calf are killing him w pain. I ordered a CT looking for necrosis of soft tissues and none seen. Still simple cellulitis in a diabetic. Blood cultures are negative. Day #3 for abx. (2) SIRS (systemic inflammatory response syndrome) Conclusion/Plan: As stated above, we will continue pressure support with IV fluids, IV antibiotics, and monitor closely. BP 109 sytolic yesterday, and 120-125 systolic this am. (3) Weakness Conclusion/Plan: Weakness is likely due to the infection, seems to be improving somewhat already after IV fluids in the ER but for the last 2 days, he is exhausted, aches, just doesn't feel well. better than admit, but just not rebounding. I was concerned and looked for necrosis. NOt there but slow response. (4) Hypertension Conclusion/Plan: Blood pressure is well controlled now, will resume antihypertensives if his blood pressure increases , otherwise continue to hold antihypertensives today. Qualifiers: Hypertension type: essential hypertension Qualified Code(s): I10 - Essential (primary) hypertension (5) Hyperlipidemia Conclusion/Plan: Continue home resumed Qualifiers: Hyperlipidemia type: pure hypercholesterolemia Qualified Code(s): E78.00 - Pure hypercholesterolemia, unspecified; E78.0 - Pure hypercholesterolemia (6) CAD (coronary artery disease) Conclusion/Plan: Given his significant coronary artery disease, could consider echocardiogram in the morning if he does not show improvement with respect to the lethargy, but at this point I do not think this is related to any cardiac etiology. still lethargic, but no sob. No echo yet. (7) Insulin dependent diabetes mellitus Conclusion/Plan: Blood sugars typically well controlled per the patient. He states that he cannot take Lantus because of the horse serum component of it, despite the fact that it is on his medication list. Given that he had not eaten all day on dy of admission, and still not hungry. His glucose 04/27 was 187, 144, 142. 04/28: 142 148 and 165. 04/29: 206 and 189 so far. Plan: continue sliding scale low-dose coverage
[2018-04-29] MEDS: ATORVASTATIN 10 MG TABLET PO SCH (20:07)
[2018-04-29] MEDS: ASPIRIN EC 81 MG TABLET PO SCH (20:08)
--- NOTE | 2018-04-29 20:44 | Ultrasound Report ---
Reason: left thigh pain, groin pain in cellulitis Procedure Date: 04/29/2018 Accession Number: [id number] / [id number] Procedure: US - Duplex Ext Veins Left CPT Code: FULL RESULT: EXAM: LEFT LOWER EXTREMITY VENOUS ULTRASOUND EXAM DATE: 04/29/2018 07:23 PM. CLINICAL HISTORY: Left thigh pain, groin pain, and cellulitis. COMPARISON: None. TECHNIQUE: Real-time sonographic vascular imaging was performed by the corporate meeting planner through the lower extremity utilizing both color-flow and Doppler spectral analysis. Multiple district representative static images were saved for review. FINDINGS: Common Femoral Vein (CFV): Normal. CFV-GSV Junction: Normal. Profunda Femoral Vein (PFV): Normal. Femoral Vein (FV) Prox: Normal. Femoral Vein (FV) Mid: Normal. Femoral Vein (FV) Dist: Normal. Popliteal Vein: Normal. Posterior Tibial Veins: Normal. Peroneal Veins: Nonvisualized. IMPRESSION: No evidence for deep venous thrombosis. RADIA
[2018-04-29] MEDS: guaiFENesin/DEXTROMETHORPHAN 10 ML UDC PO PRN (22:42)
[2018-04-29] MEDS: FUROSEMIDE 20 MG TABLET PO SCH (22:42)
[2018-04-30] MEDS: INSULIN GLARGINE 300 UNIT/3 ML PEN SUBQ SCH ×3 (00:15→21:15)
[2018-04-30] MEDS: SODIUM CHLORIDE FLUSH 0.9% 10 ML SYRINGE IVP SCH ×3 (01:17→17:28)
[2018-04-30 03:41] LABS: HGB - HEMOGLOBIN 12.1 g/dL (14.0-18.0); MEAN CORPUSCULAR HGB CONC 33.2 g/dL (32.0-36.0); MEAN CORPUSCULAR VOLUME 93.4 fL (80.0-94.0); MEAN PLATELET VOLUME 8.9 fL (7.4-11.4); RED BLOOD COUNT 3.89 10^6/uL (4.70-6.10); RED CELL DISTRIBUTION WIDTH 13.7 % (12.0-15.0); WHITE BLOOD COUNT 11.2 x10^3/uL (4.8-10.8)
[2018-04-30 03:45] LABS: CREATININE 0.9 mg/dL (0.6-1.2)
[2018-04-30 03:46] LABS: VANCOMYCIN,TROUGH 9.5 ug/mL (10.0-20.0)
[2018-04-30] MEDS: VANCOMYCIN INJ 1.75 GM in SODIUM CHLORIDE 0.9% 500 ML IV SCH (04:07)
[2018-04-30] MEDS: HYDROcod/ACETAM 5/325 MG TABLET PO PRN ×3 (05:09→16:16)
[2018-04-30] MEDS: PANTOPRAZOLE 40 MG VIAL IVP SCH (06:24)
[2018-04-30] MEDS: guaiFENesin/DEXTROMETHORPHAN 10 ML UDC PO PRN (06:24)
[2018-04-30] MEDS: PIPERACILLIN/TAZOBACTAM 3.375 GM in SODIUM CHLORIDE 0.9% MINIBAG 100 ML IV SCH ×4 (06:24→22:12)
[2018-04-30] MEDS: FUROSEMIDE 20 MG TABLET PO SCH ×2 (06:24→14:47)
[2018-04-30] MEDS: SODIUM CHLORIDE FLUSH 0.9% 10 ML SYRINGE IVP PRN (06:24)
--- NOTE | 2018-04-30 07:23 | PROVIDER PROGRESS NOTE ---
Subjective - Prog Note Date Prog Note Date: 04/30/18 Prog Note Time: 12:17 - Subjective Subjective: He feels better today. Not nearly as lethargic. He is able to weight-bear on that left foot without as much agonizing pain. He is reluctant to be walking here, but appears enthusiastic about walking in his 5 acre property that is uneven ground, roots on the ground, trees and force etc. No fever, no chills. Venous Dopplers last night do not show DVT left leg. He says that he is just having a "panic moment". It helped a lot that the knocked Paul and nurses spent a lot of time with him last night. Current Medications - Current Medications Current Medications: Active Medications Hydrocodone Bitart/Acetaminophen ([place] 5/325) 1 tab PO Q4HR PRN PRN Reason: Pain 5 to 7 Last Admin: 04/30/18 05:09 Dose: 1 tab Aspirin (Ecotrin) 81 mg PO QPM [facility] Last Admin: 04/29/18 20:08 Dose: 81 mg Atorvastatin Calcium (Lipitor) 20 mg PO HS [facility] Last Admin: 04/29/18 20:07 Dose: 20 mg Enoxaparin Sodium (Lovenox) 40 mg SUBQ DAILY [facility] Last Admin: 04/29/18 10:33 Dose: 40 mg Fenofibrate (Tricor) 144 mg PO DAILY [facility] Last Admin: 04/29/18 10:33 Dose: 144 mg Furosemide (Lasix) 20 mg PO BIDDIURETIC [facility] Last Admin: 04/30/18 06:24 Dose: 20 mg Guaifenesin (Robitussin Dm) 10 ml PO Q6HR PRN PRN Reason: Cough Last Admin: 04/30/18 06:24 Dose: 10 ml Sodium Chloride (Normal Saline 0.9%) 1,000 mls @ 125 mls/hr IV .Q8H [facility] Last Infusion: 04/30/18 07:03 Dose: 125 mls/hr Piperacillin Sod/Tazobactam (Sod 3.375 gm/ Sodium Chloride) 100 mls @ 200 mls/h r IV Q6H [facility] Last Infusion: 04/30/18 07:04 Dose: Infused Vancomycin HCl 1.75 gm/ Sodium (Chloride) 500 mls @ 250 mls/hr IV Q12H [facility] Ibuprofen (Motrin) 600 mg PO Q6HR PRN PRN Reason: Pain 1 to 4 Last Admin: 04/29/18 12:18 Dose: 600 mg Insulin Aspart (Novolog) 2 - 10 unit SUBQ 0800,1200,1700,2100 [facility]; Protocol Last Admin: 04/29/18 21:36 Dose: 6 unit Insulin Glargine (Lantus Solostar) 20 unit SUBQ BID [facility] Last Admin: 04/30/18 00:15 Dose: 20 unit Losartan Potassium (Cozaar) 50 mg PO BID [facility] Last Admin: 04/29/18 20:08 Dose: 50 mg Morphine Sulfate (Morphine (Carpuject)) 2 mg IVP Q2HR PRN PRN Reason: Pain 8 to 10 Multivitamins (Theragran) 1 tab PO DAILY [facility] Last Admin: 04/29/18 10:32 Dose: 1 tab Nystatin (Nystop) 0 applic TOP BID [facility] Last Admin: 04/29/18 22:25 Dose: Not Given Qynit-7-Hxsk Ethyl Esters (Lovaza) 2 gm PO DAILY [facility] Last Admin: 04/29/18 10:33 Dose: 2 gm Ondansetron HCl (Zofran Inj) 4 mg IVP Q6HR PRN PRN Reason: Nausea / Vomiting Pantoprazole Sodium (Protonix) 40 mg IVP QDAC [facility] Last Admin: 04/30/18 06:24 Dose: 40 mg Polyethylene Glycol (Miralax) 17 gm PO DAILY [facility] Last Admin: 04/29/18 10:33 Dose: 17 gm Potassium Chloride (K-Dur) 20 meq PO DAILYWM [facility] Last Admin: 04/29/18 10:33 Dose: 20 meq Prochlorperazine Edisylate (Compazine Inj) 10 mg IVP Q6HR PRN PRN Reason: Nausea / Vomiting Sodium Chloride (Normal Saline Flush 0.9%) 10 ml IVP PRN PRN PRN Reason: NEEDED PER PROVIDER ORDERS Last Admin: 04/30/18 06:24 Dose: 10 ml Sodium Chloride (Normal Saline Flush 0.9%) 10 ml IVP 0100,0900,1700 [facility] Last Admin: 04/30/18 01:17 Dose: Not Given Aspirin [Aspir 81] 81 mg PO QPM 07/16/14 Insulin Glargine,Hum.rec.anlog [Lantus] 40 unit SQ BID 07/16/14 Losartan [Cozaar] 50 mg PO BID 07/16/14 Multivitamin [Multi-Vitamin Daily] 1 tab PO DAILY 07/16/14 [place]-3 Fatty Acids/Fish Oil [Fish Oil 1,000 mg Capsule] 2 each PO DAILY 07/16 Fenofibrate Nanocrystallized [Fenofibrate] 145 mg PO DAILY 12/03/16 Insulin Aspart [Novolog] 9 - 13 unit SQ AC 04/06/17 Rosuvastatin Calcium [Crestor] 10 mg PO DAILY 04/28/18 Objective - Vital Signs/Intake & Output Reviewed Vital Signs: Yes Vital Signs: Vital Signs x48h Temp Pulse Resp BP Pulse Ox 04/30/18 00:00 36.6 C 95 20 162/54 H 94 Intake & Output: Intake & Output 04/27/18 04/28/18 04/29/18 04/30/18 23:59 23:59 23:59 23:59 Intake Total 1600 4350.000 4604.167 2000 Output Total 825 900 350 Balance 1600 3525.000 3704.167 1650 - Objective General Appearance: positive: Alert, Mild distress (From anxiety and left groin and left foot pain), Other (Morbidly obese white male looks stated age well- nourished well-developed) Eyes Bilateral: positive: PERRL Neck: positive: No JVD. negative: Stiff neck, Carotid bruit Respiratory: positive: Chest non-tender, Other (Breath sounds diminished at bases but I think this reflection of his anatomy and size). negative: Wheezes, Rales, Rhonchi Cardiovascular: positive: Regular rate & rhythm. negative: Gallop/S4, Friction rub Abdomen: positive: Non-tender, No organomegaly, Nml bowel sounds, No distention, Other (Large, obese, firm abdominal pannus) Skin: positive: Other (The skin over his left lewis is red, raw, slightly blistering. Certain areas of oozing. This is all from venous stasis and venous stasis dermatitis. Extensive redness and heat over the top of his foot. A line was drawn on admission just distal to the knee and the redness and heat have not gone above that. However he has firm groin adenopathy in the left groin. Overall, the color and edema have not really improved much during his stay.) Extremities: positive: Full ROM, No pedal edema Neurologic/Psychiatric: positive: Oriented x3, CN's nml (2-12), Motor nml, Weakness - Lab Results Fish Bones: 04/30/18 03:30 04/30/18 03:30 Other Labs: Lab Results x24hrs 04/30/18 04/30/18 04/30/18 Range/Units 03:30 03:30 03:30 WBC 11.2 H (4.8-10.8) x10^3/uL RBC 3.89 L (4.70-6.10) 10^6/uL Hgb 12.1 L (14.0-18.0) g/dL Hct 36.4 L (42.0-52.0) % MCV 93.4 (80.0-94.0) fL MCH 31.0 (27.0-31.0) pg MCHC 33.2 (32.0-36.0) g/dL RDW 13.7 (12.0-15.0) % Plt Count 140 (130-450) 10^3/uL MPV 8.9 (7.4-11.4) fL Sodium 137 (135-145) mmol/L Potassium 3.7 (3.5-5.0) mmol/L Chloride 109 (101-111) mmol/L Carbon Dioxide 22 (21-32) mmol/L Anion Gap 6.0 (6-13) BUN 16 (6-20) mg/dL Creatinine 0.9 (0.6-1.2) mg/dL Estimated GFR (MDRD) 83 L (>89) Glucose 237 H (70-100) mg/dL POC Whole Bld Glucose (70 - 100) mg/dL Calcium 8.0 L (8.5-10.3) mg/dL Last Dose Date UNK Last Dose Time UNK Vancomycin Trough 9.5 L (10.0-20.0) ug/mL 04/30/18 04/29/18 04/29/18 Range/Units 00:08 21:05 16:42 WBC (4.8-10.8) x10^3/uL RBC (4.70-6.10) 10^6/uL Hgb (14.0-18.0) g/dL Hct (42.0-52.0) % MCV (80.0-94.0) fL MCH (27.0-31.0) pg MCHC (32.0-36.0) g/dL RDW (12.0-15.0) % Plt Count (130-450) 10^3/uL MPV (7.4-11.4) fL Sodium (135-145) mmol/L Potassium (3.5-5.0) mmol/L Chloride (101-111) mmol/L Carbon Dioxide (21-32) mmol/L Anion Gap (6-13) BUN (6-20) mg/dL Creatinine (0.6-1.2) mg/dL Estimated GFR (MDRD) (>89) Glucose (70-100) mg/dL POC Whole Bld Glucose 230 H 229 H 217 H (70 - 100) mg/dL Calcium (8.5-10.3) mg/dL Last Dose Date Last Dose Time Vancomycin Trough (10.0-20.0) ug/mL 04/29/18 04/29/18 Range/Units 11:27 07:41 WBC (4.8-10.8) x10^3/uL RBC (4.70-6.10) 10^6/uL Hgb (14.0-18.0) g/dL Hct (42.0-52.0) % MCV (80.0-94.0) fL MCH (27.0-31.0) pg MCHC (32.0-36.0) g/dL RDW (12.0-15.0) % Plt Count (130-450) 10^3/uL MPV (7.4-11.4) fL Sodium (135-145) mmol/L Potassium (3.5-5.0) mmol/L Chloride (101-111) mmol/L Carbon Dioxide (21-32) mmol/L Anion Gap (6-13) BUN (6-20) mg/dL Creatinine (0.6-1.2) mg/dL Estimated GFR (MDRD) (>89) Glucose (70-100) mg/dL POC Whole Bld Glucose 189 H 206 H (70 - 100) mg/dL Calcium (8.5-10.3) mg/dL Last Dose Date Last Dose Time Vancomycin Trough (10.0-20.0) ug/mL ABX Reporting Has patient been on IV antibiotics over the past 48 hours?: Yes Sepsis Event Note (H) - Evaluation Current Stage of Sepsis: Ruled out Assessment/Plan - Problem List (1) Cellulitis of leg, left Impression: Patient sustained an abrasion as he brushed up against a old tool and this is likely the source of the infection leading to cellulitis in the left lower leg. Patient is very confident his last tetanus vaccination was approximately 2 years ago, so at this point I will hold off on tetanus vaccination or immunoglobulin. His left leg however is significantly erythematous, very tender, and given the T-max of 103 F documented at home, along with soft blood pressures, and significant lethargy and change in energy , patient needed to be admitted for IV antibiotics initially until a significant clinical response can be appreciated. Blood cultures received by lab and pending. He does not meet criteria for sepsis but given the significant lethargy I would say he does meet criteria for SIRS has been monitored closely. Empiric antibiotics will be IV Zosyn and vancomycin pending cultures. Blood cultures are negative. He continued to have no appetite, exhausted but no fever. Legs appear less red. But his foot and calf are killing him w pain. I ordered a CT looking for necrosis of soft tissues and none seen. Still simple cellulitis in a diabetic. Blood cultures are negative. Venous dopplers negative for DVT up into thigh. today he feels less pain and a bit more energy. Day #4 for abx. Walk him in room and hallway. See if wound RN can see him tomorrow. (2) SIRS (systemic inflammatory response syndrome) Conclusion/Plan: As stated above, we will continue pressure support with IV fluids, IV antibiotics, and monitor closely. BP 109 sytolic 04/28, and 120-125 yesterday and 160's this am. (3) Weakness Conclusion/Plan: Weakness is likely due to the infection, seems to be improving somewhat already after IV fluids in the ER but for the last 3 days, he is exhausted, aches, just doesn't feel well. better than admit, but just not rebounding. I was concerned and looked for necrosis but there is none there and I suspect slow response as cause. Walk today. (4) Hypertension Conclusion/Plan: Blood pressure is well controlled now, will resume antihypertensives if his blood pressure increases , otherwise continue to hold antihypertensives today. If systolic continues to be above 140 today will resume BP meds. Qualifiers: Hypertension type: essential hypertension Qualified Code(s): I10 - Essential (primary) hypertension (5) Hyperlipidemia Conclusion/Plan: Continue home resumed Qualifiers: Hyperlipidemia type: pure hypercholesterolemia Qualified Code(s): E78.00 - Pure hypercholesterolemia, unspecified; E78.0 - Pure hypercholesterolemia (6) CAD (coronary artery disease) Conclusion/Plan: Given his significant coronary artery disease, could consider echocardiogram in the morning if he does not show improvement with respect to the lethargy, but at this point I do not think this is related to any cardiac etiology. still lethargic, but no sob. No echo yet. (7) Insulin dependent diabetes mellitus Conclusion/Plan: Blood sugars typically well controlled per the patient. He states that he cannot take Lantus because of the horse serum component of it, despite the fact that it is on his medication list. Given that he had not eaten all day on day of admission, and still not hungry. His glucose 04/27 was 187, 144, 142. 04/28: 142, 148 and 165. 04/29: 206, 189, 217, 229. . This morning he is 230, 208, 185. Plan: continue sliding scale low-dose coverage and lantus added. He states he can take lantus after all.
[2018-04-30] MEDS: SODIUM CHLORIDE 0.9% 1,000 ML IV SCH ×3 (08:14→21:13)
[2018-04-30] MEDS: POLYETHYLENE GLYCOL 3350 17 GM PACKET PO SCH ×2 (09:06→09:14)
[2018-04-30] MEDS: MULTIVITAMIN TABLET PO SCH (09:07)
[2018-04-30] MEDS: POTASSIUM CHLORIDE 20 MEQ TABLET PO SCH (09:07)
[2018-04-30] MEDS: FENOFIBRATE 48 MG TABLET PO SCH (09:07)
[2018-04-30] MEDS: OMEGA-3 ACID ETHYL ESTERS 1 GM CAPSULE PO SCH (09:07)
[2018-04-30] MEDS: LOSARTAN 50 MG TABLET PO SCH ×2 (09:08→20:28)
[2018-04-30] MEDS: ENOXAPARIN 40 MG/0.4 ML SYRINGE SUBQ SCH (09:09)
[2018-04-30] MEDS: NYSTATIN POWDER 15 GM TOP SCH ×2 (09:10→20:28)
[2018-04-30] MEDS: INSULIN ASPART 300 UNIT/3 ML PEN SUBQ SCH ×4 (09:26→21:13)
[2018-04-30] MEDS ORDERED: [UNRECOGNIZED DRUG - OTHER] ONE (16:09)
[2018-04-30] MEDS: IBUPROFEN 600 MG TABLET PO PRN (16:16)
[2018-04-30] MEDS: VANCOMYCIN INJ 1 GM, VANCOMYCIN INJ 500 MG in SODIUM CHLORIDE 0.9% 500 ML IV SCH (17:08)
[2018-04-30] MEDS: ASPIRIN EC 81 MG TABLET PO SCH (20:28)
[2018-04-30] MEDS: ATORVASTATIN 10 MG TABLET PO SCH (20:28)
[2018-05-01] MEDS ORDERED: VANCOMYCIN 1 GM VIAL ONE (03:44)
[2018-05-01] MEDS ORDERED: INSULIN REGULAR HUMAN 100 UNIT/1 ML 10 ML MDV ONE (03:49)
[2018-05-01] MEDS: VANCOMYCIN INJ 1 GM, VANCOMYCIN INJ 500 MG in SODIUM CHLORIDE 0.9% 500 ML IV SCH ×2 (03:59→15:42)
[2018-05-01] MEDS: HYDROcod/ACETAM 5/325 MG TABLET PO PRN ×2 (04:19→10:42)
[2018-05-01] MEDS: PANTOPRAZOLE 40 MG VIAL IVP SCH (06:14)
[2018-05-01] MEDS: SODIUM CHLORIDE FLUSH 0.9% 10 ML SYRINGE IVP SCH ×3 (06:14→15:45)
[2018-05-01] MEDS: PIPERACILLIN/TAZOBACTAM 3.375 GM in SODIUM CHLORIDE 0.9% MINIBAG 100 ML IV SCH ×4 (06:14→22:39)
[2018-05-01] MEDS: FUROSEMIDE 20 MG TABLET PO SCH ×2 (06:14→14:06)
[2018-05-01 06:20] LABS: BASOPHILS % (AUTO) 0.3 %; EOSINOPHILS # (AUTO) 0.2 10^3/uL (0.0-0.7); EOSINOPHILS % (AUTO) 1.4 %; HGB - HEMOGLOBIN 11.7 g/dL (14.0-18.0); LYMPHOCYTES # (AUTO) 1.1 10^3/uL (1.5-3.5); LYMPHOCYTES % (AUTO) 9.3 %; MEAN CORPUSCULAR HEMOGLOBIN 30.9 pg (27.0-31.0); MEAN CORPUSCULAR HGB CONC 33.6 g/dL (32.0-36.0); MEAN CORPUSCULAR VOLUME 91.9 fL (80.0-94.0); MONOCYTES # (AUTO) 0.9 10^3/uL (0.0-1.0); MONOCYTES % (AUTO) 7.8 %; NEUTROPHILS # (AUTO) 9.3 10^3/uL (1.5-6.6); NEUTROPHILS % (AUTO) 81.2 %; PLT - PLATELET COUNT 175 10^3/uL (130-450); RED BLOOD COUNT 3.79 10^6/uL (4.70-6.10); RED CELL DISTRIBUTION WIDTH 13.5 % (12.0-15.0); WHITE BLOOD COUNT 11.4 x10^3/uL (4.8-10.8)
[2018-05-01] MEDS: ENOXAPARIN 40 MG/0.4 ML SYRINGE SUBQ SCH (08:20)
[2018-05-01] MEDS: FENOFIBRATE 48 MG TABLET PO SCH (08:20)
[2018-05-01] MEDS: OMEGA-3 ACID ETHYL ESTERS 1 GM CAPSULE PO SCH (08:20)
[2018-05-01] MEDS: LOSARTAN 50 MG TABLET PO SCH ×2 (08:21→20:17)
[2018-05-01] MEDS: MULTIVITAMIN TABLET PO SCH (08:21)
[2018-05-01] MEDS: POTASSIUM CHLORIDE 20 MEQ TABLET PO SCH (08:21)
[2018-05-01] MEDS: INSULIN ASPART 300 UNIT/3 ML PEN SUBQ SCH ×4 (08:21→20:43)
[2018-05-01] MEDS: INSULIN GLARGINE 300 UNIT/3 ML PEN SUBQ SCH ×2 (08:24→20:44)
[2018-05-01] MEDS: NYSTATIN POWDER 15 GM TOP SCH ×2 (08:27→20:18)
[2018-05-01] MEDS: POLYETHYLENE GLYCOL 3350 17 GM PACKET PO SCH (08:28)
[2018-05-01] MEDS: SODIUM CHLORIDE 0.9% 1,000 ML IV SCH (09:05)
--- NOTE | 2018-05-01 14:31 | PROVIDER PROGRESS NOTE ---
Subjective - Prog Note Date Prog Note Date: 05/01/18 Prog Note Time: 14:39 - Subjective Subjective: Moving around in his room more more. Actually got on the hallway. Still hurts to weight-bear on that affected leg and foot. Especially in the foot. But not as agonizing as it was before. He has not had any fevers. White cell count stayed stable at 11,000. C-reactive protein 187.customs import specialist has seen him today. Debridement done. Current Medications - Current Medications Current Medications: Active Medications Hydrocodone Bitart/Acetaminophen ([place] 5/325) 1 tab PO Q4HR PRN PRN Reason: Pain 5 to 7 Last Admin: 05/01/18 10:42 Dose: 1 tab Aspirin (Ecotrin) 81 mg PO QPM [facility] Last Admin: 04/30/18 20:28 Dose: 81 mg Atorvastatin Calcium (Lipitor) 20 mg PO HS [facility] Last Admin: 04/30/18 20:28 Dose: 20 mg Enoxaparin Sodium (Lovenox) 40 mg SUBQ DAILY [facility] Last Admin: 05/01/18 08:20 Dose: 40 mg Fenofibrate (Tricor) 144 mg PO DAILY [facility] Last Admin: 05/01/18 08:20 Dose: 144 mg Furosemide (Lasix) 20 mg PO BIDDIURETIC [facility] Last Admin: 05/01/18 14:06 Dose: 20 mg Guaifenesin (Robitussin Dm) 10 ml PO Q6HR PRN PRN Reason: Cough Last Admin: 04/30/18 06:24 Dose: 10 ml Piperacillin Sod/Tazobactam (Sod 3.375 gm/ Sodium Chloride) 100 mls @ 200 mls/hr IV Q6H [facility] Last Infusion: 05/01/18 11:43 Dose: Infused Vancomycin HCl 1 gm/Vancomycin HCl 500 mg/ Sodium Chloride 500 mls @ 250 mls/hr IV Q12H [facility] Last Infusion: 05/01/18 06:00 Dose: Infused Ibuprofen (Motrin) 600 mg PO Q6HR PRN PRN Reason: Pain 1 to 4 Last Admin: 04/30/18 16:16 Dose: 600 mg Insulin Aspart (Novolog) 2 - 10 unit SUBQ 0800,1200,1700,2100 [facility]; Protocol Last Admin: 05/01/18 13:59 Dose: 2 unit Insulin Glargine (Lantus Solostar) 20 unit SUBQ BID [facility] Last Admin: 05/01/18 08:24 Dose: 20 unit Losartan Potassium (Cozaar) 50 mg PO BID [facility] Last Admin: 05/01/18 08:21 Dose: 50 mg Morphine Sulfate (Morphine (Carpuject)) 2 mg IVP Q2HR PRN PRN Reason: Pain 8 to 10 Multivitamins (Theragran) 1 tab PO DAILY [facility] Last Admin: 05/01/18 08:21 Dose: 1 tab Nystatin (Nystop) 0 applic TOP BID [facility] Last Admin: 05/01/18 08:27 Dose: 1 applic [id number] Ethyl Esters (Lovaza) 2 gm PO DAILY [facility] Last Admin: 05/01/18 08:20 Dose: 2 gm Polyethylene Glycol (Miralax) 17 gm PO DAILY [facility] Last Admin: 05/01/18 08:28 Dose: Not Given Potassium Chloride (K-Dur) 20 meq PO DAILYWM [facility] Last Admin: 05/01/18 08:21 Dose: 20 meq Prochlorperazine Edisylate (Compazine Inj) 10 mg IVP Q6HR PRN PRN Reason: Nausea / Vomiting Sodium Chloride (Normal Saline Flush 0.9%) 10 ml IVP PRN PRN PRN Reason: NEEDED PER PROVIDER ORDERS Last Admin: 04/30/18 06:24 Dose: 10 ml Sodium Chloride (Normal Saline Flush 0.9%) 10 ml IVP 0100,0900,1700 [facility] Last Admin: 05/01/18 08:28 Dose: Not Given Aspirin [Aspir 81] 81 mg PO QPM 07/16/14 Insulin Glargine,Hum.rec.anlog [Lantus] 40 unit SQ BID 07/16/14 Losartan [Cozaar] 50 mg PO BID 07/16/14 Multivitamin [Multi-Vitamin Daily] 1 tab PO DAILY 07/16/14 [place]-3 Fatty Acids/Fish Oil [Fish Oil 1,000 mg Capsule] 2 each PO DAILY 06/18 05/02 Fenofibrate Nanocrystallized [Fenofibrate] 145 mg PO DAILY 12/03/16 Insulin Aspart [Novolog] 9 - 13 unit SQ AC 04/06/17 Rosuvastatin Calcium [Crestor] 10 mg PO DAILY 04/28/18 Objective - Vital Signs/Intake & Output Reviewed Vital Signs: Yes Vital Signs: Vital Signs x48h Temp Pulse Resp BP Pulse Ox 05/01/18 08:00 36.5 C 75 16 155/71 H 97 Intake & Output: Intake & Output 04/28/18 04/29/18 04/30/18 05/01/18 23:59 23:59 23:59 23:59 Intake Total 4350.000 4604.167 5469.583 2422.917 Output Total 437 505 3752 1100 Balance 3525.000 3704.167 4119.583 1322.917 - Objective General Appearance: positive: No acute distress, Alert Eyes Bilateral: positive: PERRL, EOMI ENT: positive: Pharynx nml Neck: positive: No JVD. negative: Stiff neck, Carotid bruit Respiratory: positive: Chest non-tender. negative: Wheezes, Rales, Rhonchi Cardiovascular: positive: Regular rate & rhythm. negative: Systolic murmur, Gallop/S4, Friction rub Abdomen: positive: Non-tender, No organomegaly, Nml bowel sounds, No distention, Other (large, obese, firm panus) Skin: positive: Other (his left leg is about the same but less draining and now debrided.) Extremities: positive: Pedal edema Neurologic/Psychiatric: positive: Oriented x3, CN's nml (2-12), Motor nml - Lab Results Fish Bones: 05/01/18 05:36 04/30/18 03:30 Other Labs: Lab Results x24hrs 05/01/18 05/01/18 05/01/18 Range/Units 11:25 08:03 05:36 WBC (4.8-10.8) x10^3/uL RBC (4.70-6.10) 10^6/uL Hgb (14.0-18.0) g/dL Hct (42.0-52.0) % MCV (80.0-94.0) fL MCH (27.0-31.0) pg MCHC (32.0-36.0) g/dL RDW (12.0-15.0) % Plt Count (130-450) 10^3/uL MPV (7.4-11.4) fL Neut # (Auto) (1.5-6.6) 10^3/uL Lymph # (Auto) (1.5-3.5) 10^3/uL [place] # (Auto) (0.0-1.0) 10^3/uL Eos # (Auto) (0.0-0.7) 10^3/uL Baso # (Auto) (0.0-0.1) 10^3/uL Absolute Nucleated RBC x10^3/uL Nucleated RBC % /100WBC POC Whole Bld Glucose 172 H 148 H (70 - 100) mg/dL C-React Prot High Sens 182.3 mg/L 05/01/18 04/30/18 04/30/18 Range/Units 05:36 20:50 16:37 WBC 11.4 H (4.8-10.8) x10^3/uL RBC 3.79 L (4.70-6.10) 10^6/uL Hgb 11.7 L (14.0-18.0) g/dL Hct 34.9 L (42.0-52.0) % MCV 91.9 (80.0-94.0) fL MCH 30.9 (27.0-31.0) pg MCHC 33.6 (32.0-36.0) g/dL RDW 13.5 (12.0-15.0) % Plt Count 175 (130-450) 10^3/uL MPV 9.0 (7.4-11.4) fL Neut # (Auto) 9.3 H (1.5-6.6) 10^3/uL Lymph # (Auto) 1.1 L (1.5-3.5) 10^3/uL [place] # (Auto) 0.9 (0.0-1.0) 10^3/uL Eos # (Auto) 0.2 (0.0-0.7) 10^3/uL Baso # (Auto) 0.0 (0.0-0.1) 10^3/uL Absolute Nucleated RBC 0.00 x10^3/uL Nucleated RBC % 0.0 /100WBC POC Whole Bld Glucose 195 H 183 H (70 - 100) mg/dL C-React Prot High Sens mg/L ABX Reporting Has patient been on IV antibiotics over the past 48 hours?: Yes Sepsis Event Note (H) - Evaluation Current Stage of Sepsis: Ruled out Assessment/Plan - Problem List (1) Cellulitis of leg, left Impression: Patient sustained an abrasion as he brushed up against a old tool and this is likely the source of the infection leading to cellulitis in the left lower leg. Patient is very confident his last tetanus vaccination was approximately 2 years ago, so at this point I will hold off on tetanus vaccination or immunoglobulin. His left leg however is significantly erythematous, very tender, and given the T-max of 103 F documented at home, along with soft blood pressures, and significant lethargy and change in energy , patient needed to be admitted for IV antibiotics initially until a significant clinical response can be appreciated. Blood cultures received by lab and pending. He does not meet criteria for sepsis but given the significant lethargy I would say he does meet criteria for SIRS has been monitored closely. Empiric antibiotics will be IV Zosyn and van comycin pending cultures. Blood cultures are negative. He continued to have no appetite, exhausted but no fever. Legs appear less red. But his foot and calf are killing him w pain. I ordered a CT looking for necrosis of soft tissues and none seen. Still simple cellulitis in a diabetic. Blood cultures are negative. Venous dopplers negative for DVT up into thigh. Started feeling less pain and a bit more energy by 04/29, walking in room 04/30 and walking in hallway today Day #5 for abx. Wound RN consult done. She has requested he be seen in [facility] [place] in and I've written that order. Home tomorrow (2) SIRS (systemic inflammatory response syndrome) Conclusion/Plan: Resolved after 48 hours. As stated above, we will continue pressure support with IV fluids, IV antibiotics, and monitor closely. BP 109 sytolic 04/28, and 120- 125 0n 04/29 and 160's by 04/30. (3) Weakness Conclusion/Plan: Weakness is likely due to the infection, seems to be improving somewhat already after IV fluids in the ER but for the next 3 days, he was exhausted, aches, just doesn't feel well. better than admit, but just not rebounding. I was concerned and looked for necrosis but there is none there and I suspect slow response as cause. Walking and feeling better today. Home tomorrow. (4) Hypertension Conclusion/Plan: Blood pressure is well controlled now, will resume antihypertensives if his blood pressure increases , otherwise continue to hold antihypertensives today. If systolic continues to be above 140 today will resume BP meds. He is 150-160 for 48 hours. Resumed his home meds which was losartan on 04/28 and he is still high. Add lopressor instead of norvasc bc of his edema that is already present. Qualifiers: Hypertension type: essential hypertension Qualified Code(s): I10 - Essential (primary) hypertension (5) Hyperlipidemia Conclusion/Plan: Continue home resumed Qualifiers: Hyperlipidemia type: pure hypercholesterolemia Qualified Code(s): E78.00 - Pure hypercholesterolemia, unspecified; E78.0 - Pure hypercholesterolemia (6) CAD (coronary artery disease) Conclusion/Plan: Given his significant coronary artery disease, could consider echocardiogram in the morning if he does not show improvement with respect to the lethargy, but at this point I do not think this is related to any cardiac etiology. still lethargic, but no sob. No echo yet. (7) Insulin dependent diabetes mellitus Conclusion/Plan: Blood sugars typically well controlled per the patient. He states that he cannot take Lantus because of the horse serum component of it, despite the fact that it is on his medication list. Given that he had not eaten all day on day of admission, and still not hungry. His glucose 04/27 was 187, 144, 142. 04/28: 142, 148 and 165. 04/29: 206, 189, 217, 229. . 04/30: 230, 208, 185. This morning 148 and 172 Plan: continue sliding scale low-dose coverage and lantus added. He states he can take lantus after all.
[2018-05-01] MEDS: ATORVASTATIN 10 MG TABLET PO SCH (20:17)
[2018-05-01] MEDS: ASPIRIN EC 81 MG TABLET PO SCH (20:17)
[2018-05-01] MEDS: METOPROLOL TARTRATE 25 MG TABLET PO SCH (20:18)
[2018-05-01] MEDS: SODIUM CHLORIDE FLUSH 0.9% 10 ML SYRINGE IVP PRN (22:40)
[2018-05-02] MEDS: HYDROcod/ACETAM 5/325 MG TABLET PO PRN (00:35)
[2018-05-02] MEDS: SODIUM CHLORIDE FLUSH 0.9% 10 ML SYRINGE IVP SCH ×2 (00:35→09:36)
[2018-05-02] MEDS: VANCOMYCIN INJ 1 GM, VANCOMYCIN INJ 500 MG in SODIUM CHLORIDE 0.9% 500 ML IV SCH (03:54)
[2018-05-02] MEDS: SODIUM CHLORIDE FLUSH 0.9% 10 ML SYRINGE IVP PRN ×2 (04:01→06:43)
[2018-05-02] MEDS: PIPERACILLIN/TAZOBACTAM 3.375 GM in SODIUM CHLORIDE 0.9% MINIBAG 100 ML IV SCH (06:04)
[2018-05-02] MEDS: FUROSEMIDE 20 MG TABLET PO SCH (06:14)
[2018-05-02] MEDS: guaiFENesin/DEXTROMETHORPHAN 10 ML UDC PO PRN (06:42)
[2018-05-02] MEDS: POLYETHYLENE GLYCOL 3350 17 GM PACKET PO SCH (07:40)
[2018-05-02 07:44] VITALS: BP 143/69
[2018-05-02] MEDS ORDERED: SACCHAROMYCES BOULARDII 250 MG CAPSULE PO SCH (08:00)
--- NOTE | 2018-05-02 09:10 | Discharge Plan ---
Discharge Plan Disposition: Home, Self Care Condition: Stable Prescriptions: HYDROcod/ACETAM 5/325 [[place] 5/325] 1 tab PO Q6HR PRN #12 tablet PRN Reason: Pain 5 to 7 Sulfamethox/Trimeth 800/160 [Bactrim Ds 800/160] 1 each PO BID #20 tablet Diet: Diabetic Activity Restrictions: Activity as Tolerated Shower Restrictions: No Instruction Topics: Cellulitis Dc Ch Additional Instructions or Follow Up instructions: Resume all your pre-hospital medications and diabetic management. A prescription for pain medication and several more days of antibiotics has been ordered for you. Make an appointment for follow-up at the [facility] here: , ext [phone] Follow-Up Care: [facility] - Wound/Ostomy No Smoking: If you smoke, Please STOP! Call for help. Follow-up with: Edward Ron MD [Primary Care Provider] -
[2018-05-02] MEDS: INSULIN ASPART 300 UNIT/3 ML PEN SUBQ SCH (09:34)
[2018-05-02] MEDS: POTASSIUM CHLORIDE 20 MEQ TABLET PO SCH (09:35)
[2018-05-02] MEDS: ENOXAPARIN 40 MG/0.4 ML SYRINGE SUBQ SCH (09:35)
[2018-05-02] MEDS: LOSARTAN 50 MG TABLET PO SCH (09:35)
[2018-05-02] MEDS: INSULIN GLARGINE 300 UNIT/3 ML PEN SUBQ SCH (09:35)
[2018-05-02] MEDS: METOPROLOL TARTRATE 25 MG TABLET PO SCH (09:35)
[2018-05-02] MEDS: FENOFIBRATE 48 MG TABLET PO SCH (09:35)
[2018-05-02] MEDS: OMEGA-3 ACID ETHYL ESTERS 1 GM CAPSULE PO SCH (09:36)
[2018-05-02] MEDS: MULTIVITAMIN TABLET PO SCH (09:36)
[2018-05-02] MEDS: NYSTATIN POWDER 15 GM TOP SCH (09:36)
--- NOTE | 2018-05-05 19:47 | DISCHARGE SUMMARY ---
Physician: Judy Thacker MD DATE OF ADMISSION: 04/27/2018 DATE OF DISCHARGE: 05/02/2018 HISTORY OF PRESENT ILLNESS: This is a 72-year-old white male with history of obesity, diabetes, coronary artery disease, CABG in 2003, who developed an abrasion in the lateral aspect of his left lower leg a few days before presenting to the emergency room with lethargy, fever of 103 redness, swelling and extreme pain of the left lower leg around the abrasion. He was felt to have cellulitis and SIRS and admitted for management of these. HOSPITAL COURSE AND DISCHARGE DIAGNOSES 1. SIRS (Systemic inflammatory response syndrome). Patient had lethargy and altered mental status as well as fever, elevated white blood count of 20.3 despite a normal lactic acid level of 1.5 consistent with SIRS (systemic inflammatory response syndrome). The source of his infection was felt to be his leg cellulitis and he was treated accordingly. 2. Cellulitis of the leg, left. The left lower leg was erythematous, swollen, tender, warm, and he also had a fever. He had blood cultures done and then was started on IV Zosyn and IV vancomycin. He had slow improvement of his lethargy, and eventually defervesced and white blood count dropped and he was discharged home to complete 10 more days for a 14-day course of antibiotics. At discharge he was prescribed Bactrim-DS 1 p.o. b.i.d. Blood cultures were all negative throughout hospitalization. 3. Weakness. This was felt to be from infection and he improved very slowly with IV fluids and IV antibiotics. The site of infection was observed closely for necrosis because of the slow improvement of his weakness, but he was eventually able to ambulate and was discharged home. 4. Hypertension. Blood pressure was low on presentation and his antihypertensives were on hold. They were eventually resumed using losartan and stopping Norvasc because of the leg edema and using Lopressor. 5. Hyperlipidemia. He was continued on his home medications. 6. CAD (coronary artery disease). He had no complaints of dyspnea or chest pain during this hospitalization. 6. Insulin-dependent diabetes. The patient was not in DKA on presentation. His A1c was 7.4 on admission indicating fair control. He was on a sliding scale of Regular insulin coverage for glucose checks and his home medications were resumed at discharge. LABS AND IMAGING: Venous duplex Doppler was done that showed no DVT. Lower extremity CT showed extensive subcutaneous edema indicating cellulitis, no abscess, and no bony destruction to suggest osteomyelitis. Chest x-ray on admission day was unremarkable. ALLERGIES: METFORMIN, TETANUS TOXOID AND POSSIBLY EQUINE CONTAINING PRODUCTS. MEDICATIONS AT TIME OF DISCHARGE 1. Aspirin 81 mg daily. 2. Fenofibrate 145 mg daily. 3. Aspart insulin sliding scale. 4. Glargine insulin 40 units subcutaneously b.i.d. 5. Losartan 50 mg b.i.d. 6. Multivitamin daily. 7. [place]-3 daily. 8. Crestor 10 mg daily. 9. [place] 5/325 mg every 6 hours p.r.n. pain. 10. Bactrim DS 1 p.o. b.i.d. for 10 more days. CONDITION AT DISCHARGE: Stable. PHYSICAL EXAMINATION: VITAL SIGNS: Stable. Blood pressure 143/69, pulse of 70 and regular, afebrile, room air saturation 94%. HEENT: Unremarkable. NECK: Without JVD or carotid bruits. CHEST: Clear. HEART: Sounds normal. ABDOMEN: Obese, distended, nontender. EXTREMITIES: There was bilateral 1+ pitting edema. The left lewis was red, but not warm and nontender. There was a bandage over the wound at the left lateral lewis. NEUROLOGIC: Intact. CODE STATUS: FULL CODE. FOLLOWUP: He was advised to see PCP within 1 week. Time required to complete this entire discharge, dictation, prescription orders, chart review: 60 minutes. cc: Edward Ron MD TD: 05/05/2018 18:58 [facility]
== END 2018-05-02 11:43 | disposition home or self-care (01) | DRG 603 ==
LOC: ED 18:44 → MS2 22:20
PROVIDERS: ADMIT Family Medicine Sports Medicine; ATTEND Specialist
DX: L03.116 Cellulitis of left lower limb (principal); R50.9 Fever, unspecified; I10 Essential (primary) hypertension; I25.10 Atherosclerotic heart disease of native coronary artery without angina pectoris; Z95.1 Presence of aortocoronary bypass graft; E11.9 Type 2 diabetes mellitus without complications; Z86.010 Personal history of colon polyps; H35.30 Unspecified macular degeneration; M19.90 Unspecified osteoarthritis, unspecified site; Z90.49 Acquired absence of other specified parts of digestive tract; Z85.828 Personal history of other malignant neoplasm of skin; Z79.82 Long term (current) use of aspirin; Z79.4 Long term (current) use of insulin; Z88.7 Allergy status to serum and vaccine; Z91.09 Other allergy status, other than to drugs and biological substances; Z87.891 Personal history of nicotine dependence; G47.30 Sleep apnea, unspecified; E78.5 Hyperlipidemia, unspecified; E66.9 Obesity, unspecified; Z68.36 Body mass index [BMI] 36.0-36.9, adult
CPT/HCPCS: 36415; 51701; 71045; 80048; 80053; 80202; 81001; 81003; 82009; 83036; 83605; 83690; 85025; 85027; 86141; 87040; 87086; 87275; 87276; 96365; 96367; 99284; 99285

== ENCOUNTER 2018-05-04 11:59 | Emergency (ER) | payer MEDICARE, BC ==
--- NOTE | 2018-05-04 12:57 | ED Physician Documentation ---
History of Present Illness - Stated complaint Stated Complaint: LEFT LEG SWOLLEN - Chief complaint Chief Complaint: Ext Problem - History obtained from History obtained from: Patient, Family - History of Present Illness Timing: How many weeks ago (several) Pain level max: 7 Pain level now: 4 Quality: pain Improved by: IV abx Worsened by: nothing - Additonal information Additional information: LLE pain and swelling for the past several weeks. discharged 3 days ago after being in the hospital for IV abx. Discharged on bactrim. States now worsening again. states increasing redness and swelling. negative CT and US of the LLE last week. Review of Systems Ten Systems: 10 systems reviewed and negative Constitutional: denies: Fever, Chills Ears: denies: Ear pain Throat: denies: Sore throat Cardiac: denies: Chest pain / pressure GI: denies: Vomiting : denies: Dysuria Skin: denies: Rash Musculoskeletal: denies: Neck pain, Back pain Neurologic: denies: Headache PD PAST MEDICAL HISTORY - Past Medical History Past Medical History: Yes Cardiovascular: Hypertension, Coronary artery disease, Angina Respiratory: Sleep apnea Neuro: None Endocrine/Autoimmune: Type 2 diabetes GI: Colon polyps : None HEENT: Macular degeneration Psych: None Musculoskeletal: Osteoarthritis Derm: Other - Past Surgical History General: Cholecystectomy, Colonoscopy Ortho: Spine surgery, Other Cardiovascular: CABG HEENT: Other Derm: Skin cancer surgery - Present Medications Home Medications: Ambulatory Orders Medication Instructions Recorded Confirmed Aspirin [Aspir 81] 81 mg PO QPM 07/16/14 05/04/18 Insulin Glargine,Hum.rec.anlog 40 unit SQ BID 07/16/14 05/04/18 [Lantus] Losartan [Cozaar] 50 mg PO BID 07/16/14 05/04/18 Multivitamin [Multi-Vitamin Daily] 1 tab PO DAILY 07/16/14 05/04/18 [place]-3 Fatty Acids/Fish Oil [Fish 2 each PO DAILY 07/16/14 05/04/18 Oil 1,000 mg Capsule] Fenofibrate Nanocrystallized 145 mg PO DAILY 12/03/16 05/04/18 [Fenofibrate] Insulin Aspart [Novolog Flexpen] 9 - 13 unit SQ AC 04/06/17 05/04/18 Rosuvastatin Calcium [Crestor] 10 mg PO DAILY 04/28/18 05/04/18 HYDROcod/ACETAM 5/325 [[place] 5/325] 1 tab PO Q6HR PRN #12 tablet 05/02/18 05/04/18 Sulfamethox/Trimeth 800/160 1 each PO BID #20 tablet 05/02/18 05/04/18 [Bactrim Ds 800/160] Amox/Clav 875/125 [Augmentin] 1 each PO Q12H #20 tablet 05/04/18 - Allergies Allergies/Adverse Reactions: Allergies Allergy/AdvReac Type Severity Reaction Status Date / Time Horse/Equine Containing Allergy Respiratory Verified 05/04/18 12:12 Products metformin Allergy Edema Verified 05/04/18 12:12 Tetanus Vaccines and Toxoid Allergy Respiratory Verified 05/04/18 12:12 [Tetanus Vaccines & Toxoid] - Social History Does the pt smoke?: No Smoking Status: Never smoker Does the pt drink ETOH?: Yes Does the pt have substance abuse?: No - Immunizations Immunizations are current?: Yes - POLST Patient has POLST: Yes POLST Status: Full Code PD ED PE NORMAL - Vitals Vital signs reviewed: Yes - General General: Alert and oriented X 3, No acute distress - HEENT HEENT: Moist mucous membranes - Neck Neck: Supple, no meningeal sign - Cardiac Cardiac: RRR - Respiratory Respiratory: No respiratory distress, Clear bilaterally - Abdomen Abdomen: Soft, Non tender, Non distended - Derm Derm: Warm and dry - Extremities Extremities: Other (L LE - diffuse edema, erythema with blistering of the skin over the calf. ) - Neuro Neuro: Alert and oriented X 3 - Psych Psych: Normal mood, Normal affect Results - Vitals Vitals: Vital Signs - 24 hr 05/04/18 05/04/18 12:06 14:31 Temperature 36.7 C 36.8 C Heart Rate 81 78 Respiratory 16 16 Rate Blood Pressure 144/64 H 129/71 O2 Saturation 95 97 Oxygen O2 Source Room air - Labs Labs: Laboratory Tests 05/04/18 05/04/18 05/04/18 13:15 13:15 13:15 WBC 9.8 RBC 4.34 L Hgb 13.5 L Hct 38.9 L MCV 89.8 MCH 31.0 MCHC 34.5 RDW 13.2 Plt Count 316 MPV 8.3 Neut # (Auto) 6.4 Lymph # (Auto) 2.0 [place] # (Auto) 1.0 Eos # (Auto) 0.2 Baso # (Auto) 0.1 Absolute Nucleated RBC 0.02 Nucleated RBC % 0.2 ESR 101 H Sodium 139 Potassium 3.5 Chloride 106 Carbon Dioxide 25 Anion Gap 8.0 BUN 13 Creatinine 0.9 Estimated GFR (MDRD) 83 L Glucose 144 H Calcium 8.9 Total Bilirubin 0.6 AST 44 H ALT 60 Alkaline Phosphatase 49 C-Reactive Protein 8.4 H Total Protein 7.9 Albumin 3.0 L Globulin 4.8 H Albumin/Globulin Ratio 0.6 L Lipase 91 H PD MEDICAL DECISION MAKING - ED course Complexity details: reviewed results, re-evaluated patient, considered differential, d/w patient ED course: 72-year-old male with cellulitis of left lower extremity. He was improving on vancomycin and Zosyn and Bactrim. We will add strep coverage to this with Augmentin. Given a dose of Unasyn here. White blood cell count is still decreasing. No evidence of necrotizing soft tissue infection. Patient does not want to be readmitted to the hospital for IV antibiotics at this time. Patient and are comfortable going home. Patient and family counseled regarding signs and symptoms for which I believe and urgent re-evaluation would be necessary. Patient with good understanding of and agreement to plan and is comfortable going home at this time This document was made in part using voice recognition software. While efforts are made to proofread this document, sound alike and grammatical errors may occur. Departure - Departure Disposition: 01 Home, Self Care Clinical Impression: Cellulitis Qualifiers: Site of cellulitis: extremity Site of cellulitis of extremity: lower extremity Laterality: left Qualified Code(s): L03.116 - Cellulitis of left lower limb Condition: Good Instructions: ED Infec Skin Cellulitis Follow-Up: Edward Ron MD [Primary Care Provider] - Within 1 week Prescriptions: Amox/Clav 875/125 [Augmentin] 1 each PO Q12H #20 tablet Comments: Continue the Bactrim at home and add Augmentin. Follow-up with your doctor for further evaluation and care and wound check in 2-3 days. Return if you worsen. Return sooner for worsening redness, swelling, fevers or any other new or worsening symptoms
[2018-05-04 13:27] LABS: BASOPHILS # (AUTO) 0.1 10^3/uL (0.0-0.1); EOSINOPHILS # (AUTO) 0.2 10^3/uL (0.0-0.7); EOSINOPHILS % (AUTO) 1.9 %; HGB - HEMOGLOBIN 13.5 g/dL (14.0-18.0); LYMPHOCYTES % (AUTO) 20.9 %; MEAN CORPUSCULAR HGB CONC 34.5 g/dL (32.0-36.0); MEAN CORPUSCULAR VOLUME 89.8 fL (80.0-94.0); MEAN PLATELET VOLUME 8.3 fL (7.4-11.4); MONOCYTES % (AUTO) 10.4 %; NEUTROPHILS # (AUTO) 6.4 10^3/uL (1.5-6.6); NEUTROPHILS % (AUTO) 65.8 %; PLT - PLATELET COUNT 316 10^3/uL (130-450); RED BLOOD COUNT 4.34 10^6/uL (4.70-6.10); RED CELL DISTRIBUTION WIDTH 13.2 % (12.0-15.0); WHITE BLOOD COUNT 9.8 x10^3/uL (4.8-10.8)
[2018-05-04] MEDS ORDERED: AMPICILLIN/SULBACTAM 3 GM in SODIUM CHLORIDE 0.9% MINIBAG 100 ML IV STA (13:35)
[2018-05-04 13:43] LABS: ALBUMIN/GLOBULIN RATIO 0.6 (1.0-2.2); BILIRUBIN,TOTAL 0.6 mg/dL (0.2-1.0); CALCIUM 8.9 mg/dL (8.5-10.3); CREATININE 0.9 mg/dL (0.6-1.2); CRP - C-REACTIVE PROTEIN 8.4 mg/dL (0-1.0); TOTAL PROTEIN 7.9 g/dL (6.7-8.2)
[2018-05-04 14:31] VITALS: BP 129/71
== END 2018-05-04 14:44 | disposition home or self-care (01) ==
LOC: ED 11:59
DX: L03.116 Cellulitis of left lower limb (principal); I10 Essential (primary) hypertension; I25.10 Atherosclerotic heart disease of native coronary artery without angina pectoris; E11.9 Type 2 diabetes mellitus without complications; Z95.1 Presence of aortocoronary bypass graft; Z79.82 Long term (current) use of aspirin; Z79.4 Long term (current) use of insulin
CPT/HCPCS: 36415; 80053; 83690; 85025; 85651; 86140; 96365; 99283

== ENCOUNTER 2018-07-01 12:32 | Outpatient (CLI) | payer MEDICARE, BC ==
--- NOTE | 2018-07-03 08:31 | XRAY Report ---
Reason: PAIN IN RIGHT KNEE,PAIN IN LEFT KNEE Procedure Date: 07/01/2018 Accession Number: [id number] / [id number] Procedure: XR - Knee 3 View RT CPT Code: FULL RESULT: EXAM: RIGHT KNEE RADIOGRAPHY EXAM DATE: 07/01/2018 12:00 PM. CLINICAL HISTORY: Pain in right knee, pain in left knee. COMPARISON: Right knee 3 views 09/28/2010. TECHNIQUE: 3 views. FINDINGS: Bones: Normal. No fractures or bone lesions. Joints: Minor degenerative spurring of the tibial spines and superior and inferior pole of the patella. No significant effusion. Soft Tissues: Normal. No soft tissue swelling. IMPRESSION: Mild degenerative changes. No fracture. RADIA
--- NOTE | 2018-07-03 08:31 | XRAY Report ---
Reason: PAIN IN RIGHT KNEE,PAIN IN LEFT KNEE Procedure Date: 07/01/2018 Accession Number: [id number] / [id number] Procedure: XR - Knee 3 View LT CPT Code: FULL RESULT: EXAM: LEFT KNEE RADIOGRAPHY EXAM DATE: 07/01/2018 12:00 PM. CLINICAL HISTORY: Pain in right knee, pain in left knee. COMPARISON: XR KNEE 3 VIEW 09/28/2010 2:22 PM. TECHNIQUE: 3 views. FINDINGS: Bones: Normal. No fractures or bone lesions. Joints: Minor degenerative spurring of the tibial spines. No appreciable effusion. Soft Tissues: Surgical clips in the medial soft tissues. IMPRESSION: Normal knee radiography for age. RADIA
== END 2018-07-01 12:33 | disposition home or self-care (01) ==
LOC: DI 12:32
PROVIDERS: ATTEND Family Medicine
DX: M17.11 Unilateral primary osteoarthritis, right knee (principal); M25.562 Pain in left knee

== ENCOUNTER 2018-11-16 09:35 | Outpatient (CLI) | payer MEDICARE, BC ==
[2018-11-16] MEDS ORDERED: ALBUTEROL NEB 2.5 MG/3 ML INH SCH (10:15)
== END 2018-11-16 09:36 | disposition home or self-care (01) ==
LOC: RT 09:35
PROVIDERS: ATTEND Nurse Practitioner Family
DX: J44.9 Chronic obstructive pulmonary disease, unspecified (principal)
CPT/HCPCS: 94010; 94729

== ENCOUNTER 2019-03-30 12:04 | Outpatient (CLI) | payer MEDICARE, BC ==
--- NOTE | 2019-03-31 16:50 | XRAY Report ---
Reason: COUGH Procedure Date: 03/30/2019 Accession Number: [id number] / [id number] Procedure: XR - Chest 2 View X-Ray CPT Code: 08360 Final Report FULL RESULT: EXAM: CHEST RADIOGRAPHY EXAM DATE: 03/30/2019 12:13 PM. CLINICAL HISTORY: Cough. COMPARISON: CHEST 1 VIEW 04/27/2018 8:56 PM ABDOMEN/PELVIS W/O 09/09/2014 4:26 AM. TECHNIQUE: 2 views. FINDINGS: Lungs/Pleura: Low volumes. No overt edema. No focal pneumonia. No gross pneumothorax or large effusion. Mediastinum: Heart size within normal limits. No mediastinal shift. Other: Previous median sternotomy. IMPRESSION: Low lung volumes without acute process seen in the chest. RADIA
== END 2019-03-30 12:05 | disposition home or self-care (01) ==
LOC: DI 12:04
PROVIDERS: ATTEND Internal Medicine
DX: R05 Cough (principal)
CPT/HCPCS: 71046

== ENCOUNTER 2019-06-11 13:29 | Outpatient (CLI) | payer MEDICARE, BC ==
[2019-06-11 18:14] LABS: HB2 TOTAL 15.5 g/dL; HEMOGLOBIN A1C 0.78 g/dL; HEMOGLOBIN A1C % 6.8 % (4.6-6.2)
[2019-06-11 18:19] LABS: BUN - BLOOD UREA NITROGEN 13 mg/dL (6-20); CALCIUM 8.8 mg/dL (8.5-10.3); CARBON DIOXIDE - CO2 29 mmol/L (21-32); CHLORIDE 102 mmol/L (101-111); CHOL/HDL RATIO 2.8 (<5.0); CHOLESTEROL 122 mg/dL; CREATININE 0.7 mg/dL (0.6-1.2); GFR - MDRD 111 (>89); GLUCOSE 180 mg/dL (70-100); HDL CHOLESTEROL 43 mg/dL; LDL CHOLESTEROL,CALCULATED 51 mg/dL; LDL/HDL RATIO 1.2 (<3.6); SODIUM 138 mmol/L (135-145); VLDL CHOLESTEROL 28 mg/dL
[2019-06-11 18:34] LABS: CREATININE,URINE 100.5 mg/dL; MICROALBUM/CREATININE RATIO,UR 94.5 ug/mg (<30.0); MICROALBUMIN,URINE 9.5 mg/dL (0-300.0)
[2019-06-13 12:02] LABS: HEPATITIS C ANTIBODY NON-REACTIVE (NON-REACTIVE)
== END 2019-06-11 13:30 | disposition home or self-care (01) ==
LOC: LAB.S 13:29
PROVIDERS: ATTEND Internal Medicine
DX: Z11.59 Encounter for screening for other viral diseases (principal); M19.90 Unspecified osteoarthritis, unspecified site; L03.90 Cellulitis, unspecified; R05 Cough; Z86.010 Personal history of colon polyps; Z87.891 Personal history of nicotine dependence; E78.5 Hyperlipidemia, unspecified; I10 Essential (primary) hypertension; E66.9 Obesity, unspecified; Z13.6 Encounter for screening for cardiovascular disorders; M48.061 Spinal stenosis, lumbar region without neurogenic claudication
CPT/HCPCS: 36415; 80048; 80061; 82043; 82570; 83036; 83721; 86803

== ENCOUNTER 2019-09-18 06:38 | Outpatient (CLI) | payer MEDICARE, BC ==
[2019-09-18 08:43] LABS: HB2 TOTAL 16.3 g/dL; HEMOGLOBIN A1C 0.92 g/dL; HEMOGLOBIN A1C % 7.3 % (4.6-6.2)
--- NOTE | 2019-09-18 09:06 | CT Report ---
Reason: EX SMOKER Procedure Date: 09/18/2019 Accession Number: [id number] / [id number] Procedure: CT - Low Dose Lung Cancer Screen CPT Code: Final Report FULL RESULT: PROCEDURE: Low Dose Lung Cancer Screen INDICATIONS: EX SMOKER TECHNIQUE: Noncontrast low-dose 5 mm thick sections acquired from the pulmonary apices to the posterior costophrenic angles. 7 mm thick coronal and sagittal MIP reformats were then acquired. For radiation dose reduction, the following was used: automated exposure control, adjustment of mA and/or kV according to patient size. COMPARISON: None. FINDINGS: Image quality: Excellent. Lungs and pleura: No pulmonary nodules identified. No focal infiltrates. No pleural fluid. No pneumothorax. Mediastinum: Heart size is normal. No pericardial effusion. Dense atherosclerotic coronary artery calcifications. Remote CABG. No mediastinal adenopathy by size criteria. Thoracic aorta and central pulmonary arteries are normal in size. Esophagus is normal in caliber. No hiatal hernia. Bones and chest wall: No suspicious bony lesions. No vertebral body compression fractures. No axillary or supraclavicular adenopathy by size criteria. The thyroid is normal in size. Abdomen: Cholecystectomy clips. Visualized upper abdomen solid organs and bowel loops appear normal in the absence of contrast. IMPRESSION: 1. LungRads category 1: Negative. No nodules and/or definitely benign nodules. 2. Annual low-dose noncontrast CT of the chest is recommended for lung cancer screening. 3. Clinically significant or potentially clinically significant findings (nonlung cancer): Coronary artery disease with previous CABG. Reviewed by: Mehrdad Reyes MD on 09/18/2019 9:04 AM PDT Approved by: Mehrdad Reyes MD on 09/18/2019 9:04 AM PDT Station ID: [id number]
--- NOTE | 2019-09-18 09:23 | Ultrasound Report ---
Reason: AAA SCREEN- H/O SMOKING Procedure Date: 09/18/2019 Accession Number: [id number] / [id number] Procedure: US - Aorta Screening CPT Code: Final Report FULL RESULT: PROCEDURE: Aorta Screening INDICATIONS: AAA SCREEN- H/O SMOKING TECHNIQUE: Real time scanning was performed of the aorta and iliac arteries, with image documentation. COMPARISON: None FINDINGS: Aorta: Proximal aortic diameter measures 2.5 cm. Mid-aorta measures 2.0 cm. Distal aortic diameter is 2.1 cm. Iliac arteries: Right common iliac artery measures 1.3 cm. Left common iliac artery measures 1.3 cm. IMPRESSION: Negative screening aortic ultrasound for abdominal aortic aneurysm. Reviewed by: Mehrdad Reyes MD on 09/18/2019 9:22 AM PDT Approved by: Mehrdad Reyes MD on 09/18/2019 9:22 AM PDT Station ID: [id number]
== END 2019-09-18 06:39 | disposition home or self-care (01) ==
LOC: DI 06:38
PROVIDERS: ATTEND Internal Medicine
DX: Z12.2 Encounter for screening for malignant neoplasm of respiratory organs (principal); Z13.6 Encounter for screening for cardiovascular disorders; Z87.891 Personal history of nicotine dependence; I25.10 Atherosclerotic heart disease of native coronary artery without angina pectoris; Z95.1 Presence of aortocoronary bypass graft; E11.9 Type 2 diabetes mellitus without complications; R05 Cough; F32.9 Major depressive disorder, single episode, unspecified; E78.5 Hyperlipidemia, unspecified; I10 Essential (primary) hypertension; M48.061 Spinal stenosis, lumbar region without neurogenic claudication; Z00.00 Encounter for general adult medical examination without abnormal findings; Z86.010 Personal history of colon polyps
CPT/HCPCS: 36415; 76706; 83036; G0297

== ENCOUNTER 2020-02-21 06:26 | Day surgery (SDC) | payer MEDICARE, BC ==
[2020-02-21] MEDS ORDERED: MIDAZOLAM 2 MG/2 ML VIAL IVP ONE (06:27)
[2020-02-21] MEDS ORDERED: fentaNYL 250 MCG/5 ML VIAL IVP ONE (06:27)
[2020-02-21] MEDS ORDERED: LACTATED RINGERS 1,000 ML IV ONE ×2 (06:43→09:00)
[2020-02-21 09:21] VITALS: BP 121/65
== END 2020-02-21 06:27 | disposition home or self-care (01) ==
LOC: SDS 06:26
PROVIDERS: ATTEND Surgery
PROC: 0DBL8ZZ Excision of Transverse Colon, Via Natural or Artificial Opening Endoscopic (ICD-10-PCS; 2020-02-21)
PROC: 0DBL8ZZ Excision of Transverse Colon, Via Natural or Artificial Opening Endoscopic (ICD-10-PCS; 2020-02-21)
PROC: 0DBH8ZZ Excision of Cecum, Via Natural or Artificial Opening Endoscopic (ICD-10-PCS; principal; 2020-02-21 07:30)
DX: Z12.11 Encounter for screening for malignant neoplasm of colon (principal); D12.0 Benign neoplasm of cecum; D12.3 Benign neoplasm of transverse colon; K57.30 Diverticulosis of large intestine without perforation or abscess without bleeding; K64.8 Other hemorrhoids; I25.10 Atherosclerotic heart disease of native coronary artery without angina pectoris; Z95.1 Presence of aortocoronary bypass graft; G47.33 Obstructive sleep apnea (adult) (pediatric); Z87.891 Personal history of nicotine dependence; E66.9 Obesity, unspecified; Z68.41 Body mass index [BMI] 40.0-44.9, adult; E13.9 Other specified diabetes mellitus without complications; Z79.899 Other long term (current) drug therapy
CPT/HCPCS: 45380; 45385; J3010; J7120

== ENCOUNTER 2020-03-03 14:33 | Outpatient (CLI) | payer MEDICARE, BC ==
[2020-03-03 20:47] LABS: HEMOGLOBIN A1c% 7.9 % (4.27-6.07)
== END 2020-03-03 14:34 | disposition home or self-care (01) ==
LOC: LAB.S 14:33
PROVIDERS: ATTEND Internal Medicine
DX: J44.9 Chronic obstructive pulmonary disease, unspecified (principal); I25.10 Atherosclerotic heart disease of native coronary artery without angina pectoris; E11.9 Type 2 diabetes mellitus without complications; Z86.010 Personal history of colon polyps; Z87.891 Personal history of nicotine dependence; E78.5 Hyperlipidemia, unspecified; I10 Essential (primary) hypertension
CPT/HCPCS: 36415; 83036

== ENCOUNTER 2020-05-28 15:41 | Outpatient (CLI) | payer MEDICARE, BC ==
--- NOTE | 2020-05-28 16:34 | XRAY Report ---
PROCEDURE: Hips 2V BILAT INDICATIONS: PX BOTH HANDS AND HIPS TECHNIQUE: 2 view views of each hip were acquired. COMPARISON: X-ray of pelvis and right hip, 05/29/2013. FINDINGS: Bones: No fractures or dislocations. No suspicious bony lesions. The visualized pelvic ring appear s intact. There is bzjw-cv-[id number] degenerative joint disease in hips bilaterally. Soft tissues: No suspicious soft tissue calcifications or masses. 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 Reviewed by: Wilmar Crenshaw MD on 05/28/2020 4:33 PM PST Approved by: Wilmar Crenshaw MD on 05/28/2020 4:33 PM PST Station ID: [id number]
--- NOTE | 2020-05-28 16:42 | XRAY Report ---
PROCEDURE: Hand 3 View BILAT INDICATIONS: PAIN IN BOTH HIPS AND HANDS TECHNIQUE: 3 views of the hand(s) acquired. COMPARISON: X-ray right hand, 3 views, 08/28/2018. FINDINGS: Bones: No lytic fractures or dislocations. Old right and metacarpal shaft fracture/deformity is not ed. No suspicious bony lesions. There are arthritic changes, severe at the carpometacarpal joints la terally, moderate to right at the triscaphe joints, metacarpophalangeal joints and distal interphalan geal joints. There are periarticular bony erosions at the right second metatarsal head, bilateral fif th metacarpal heads. Soft tissues: No suspicious soft tissue calcifications. Diffuse soft tissue swelling. IMPRESSION: 1. Severe arthritic changes laterally. 2. Periarticular bony erosions described, suggesting inflammatory arthritis. Recommend clinical corre lation. 3. Old right second metacarpal shaft fracture. Reviewed by: Wilmar Crenshaw MD on 05/28/2020 4:41 PM PST Approved by: Wilmar Crenshaw MD on 05/28/2020 4:41 PM PST Station ID: [id number]
== END 2020-05-28 15:42 | disposition home or self-care (01) ==
LOC: DI.S 15:41
PROVIDERS: ATTEND Internal Medicine
DX: M16.0 Bilateral primary osteoarthritis of hip (principal); M19.042 Primary osteoarthritis, left hand; M19.041 Primary osteoarthritis, right hand

== ENCOUNTER 2020-06-16 10:00 | Outpatient (CLI) | payer MEDICARE, BC ==
[2020-06-16 15:42] LABS: CREATININE,URINE 192.8 mg/dL; MICROALBUM/CREATININE RATIO,UR 350.6 ug/mg (<30.0); MICROALBUMIN,URINE 67.6 mg/dL (0-300.0)
[2020-06-16 16:03] LABS: BASOPHILS # (AUTO) 0.1 10^3/uL (0.0-0.1); BASOPHILS % (AUTO) 0.7 %; EOSINOPHILS # (AUTO) 0.1 10^3/uL (0.0-0.7); EOSINOPHILS % (AUTO) 1.7 %; HCT - HEMATOCRIT 46.7 % (42.0-52.0); HGB - HEMOGLOBIN 15.5 g/dL (14.0-18.0); LYMPHOCYTES # (AUTO) 2.3 10^3/uL (1.5-3.5); LYMPHOCYTES % (AUTO) 29.5 %; MEAN CORPUSCULAR HEMOGLOBIN 30.6 pg (27.0-31.0); MEAN CORPUSCULAR HGB CONC 33.2 g/dL (32.0-36.0); MEAN CORPUSCULAR VOLUME 92.3 fL (80.0-94.0); MEAN PLATELET VOLUME 10.9 fL (7.4-11.4); MONOCYTES # (AUTO) 0.7 10^3/uL (0.0-1.0); MONOCYTES % (AUTO) 8.6 %; NEUTROPHILS # (AUTO) 4.5 10^3/uL (1.5-6.6); NEUTROPHILS % (AUTO) 59.1 %; PLT - PLATELET COUNT 160 10^3/uL (130-450); RED BLOOD COUNT 5.06 10^6/uL (4.70-6.10); RED CELL DISTRIBUTION WIDTH 13.2 % (12.0-15.0); WHITE BLOOD COUNT 7.6 x10^3/uL (4.8-10.8)
[2020-06-16 16:29] LABS: BUN - BLOOD UREA NITROGEN 17 mg/dL (6-20); CALCIUM 8.8 mg/dL (8.5-10.3); CARBON DIOXIDE - CO2 28 mmol/L (21-32); CHLORIDE 103 mmol/L (101-111); CHOL/HDL RATIO 2.7 (<5.0); CHOLESTEROL 110 mg/dL; CREATININE 0.7 mg/dL (0.6-1.2); GFR - MDRD 111 (>89); GLUCOSE 212 mg/dL (70-100); HDL CHOLESTEROL 41 mg/dL; LDL CHOLESTEROL,CALCULATED 55 mg/dL; LDL/HDL RATIO 1.3 (<3.6); SODIUM 137 mmol/L (135-145); TRIGLYCERIDES 72 mg/dL; VLDL CHOLESTEROL 14 mg/dL
[2020-06-16 16:41] LABS: CRP - C-REACTIVE PROTEIN < 1.0 mg/dL (0-1.0)
[2020-06-16 16:58] LABS: RHEUMATOID FACTOR NEGATIVE (Negative)
[2020-06-16 20:02] LABS: ESTIMATED AVERAGE GLUCOSE 166 mg/dL (70-100); HEMOGLOBIN A1c% 7.4 % (4.27-6.07)
[2020-06-18 12:58] LABS: ANA SCREEN NEGATIVE (NEGATIVE)
== END 2020-06-16 10:01 | disposition home or self-care (01) ==
LOC: LAB.S 10:00
PROVIDERS: ATTEND Internal Medicine
DX: E11.9 Type 2 diabetes mellitus without complications (principal); E78.5 Hyperlipidemia, unspecified; I10 Essential (primary) hypertension; M19.90 Unspecified osteoarthritis, unspecified site
CPT/HCPCS: 36415; 80048; 80061; 82043; 82570; 83036; 83721; 85025; 85651; 86038; 86140; 86430

== ENCOUNTER 2021-01-12 13:23 | Outpatient (CLI) | payer MEDICARE, BC ==
--- NOTE | 2021-01-12 16:21 | XRAY Report ---
PROCEDURE: Hips 2V BILAT INDICATIONS: HIP PAIN TECHNIQUE: 2 views of the hip were acquired. COMPARISON: Bilateral hip radiographs dated 05/28/2020 FINDINGS: No acute fracture. Mild bilateral hip joint degeneration. Scattered subchondral sclerosis and spurrin g. Anatomic alignment. Lumbar spondylosis and facet arthropathy. Soft tissues: No suspicious soft tissue calcifications or masses. Numerous scattered vascular calc ifications. IMPRESSION: Mild bilateral hip joint degeneration, unchanged since 05/28/2020. Reviewed by: Terry Howell MD on 01/12/2021 4:20 PM PDT Approved by: Terry Howell MD on 01/12/2021 4:20 PM PDT Station ID: [id number]
[2021-01-12 19:51] LABS: BASOPHILS # (AUTO) 0.1 10^3/uL (0.0-0.1); BASOPHILS % (AUTO) 0.6 %; EOSINOPHILS % (AUTO) 0.4 %; HCT - HEMATOCRIT 42.8 % (42.0-52.0); HGB - HEMOGLOBIN 14.3 g/dL (14.0-18.0); LYMPHOCYTES # (AUTO) 2.6 10^3/uL (1.5-3.5); LYMPHOCYTES % (AUTO) 27.2 %; MEAN CORPUSCULAR HEMOGLOBIN 31.8 pg (27.0-31.0); MEAN CORPUSCULAR HGB CONC 33.4 g/dL (32.0-36.0); MEAN CORPUSCULAR VOLUME 95.3 fL (80.0-94.0); MEAN PLATELET VOLUME 11.4 fL (7.4-11.4); MONOCYTES # (AUTO) 0.8 10^3/uL (0.0-1.0); MONOCYTES % (AUTO) 8.5 %; NEUTROPHILS # (AUTO) 5.9 10^3/uL (1.5-6.6); NEUTROPHILS % (AUTO) 63.1 %; PLT - PLATELET COUNT 184 10^3/uL (130-450); RED BLOOD COUNT 4.49 10^6/uL (4.70-6.10); RED CELL DISTRIBUTION WIDTH 13.1 % (12.0-15.0); WHITE BLOOD COUNT 9.4 x10^3/uL (4.8-10.8)
[2021-01-12 20:11] LABS: ALBUMIN 4.1 g/dL (3.2-5.5); ALBUMIN/GLOBULIN RATIO 1.4 (1.0-2.2); ALKALINE PHOSPHATASE 68 IU/L (42-121); ALT ALANINE AMINOTRANSFERASE 34 IU/L (10-60); AST ASPARTATE AMINOTRANSFERASE 23 IU/L (10-42); BUN - BLOOD UREA NITROGEN 29 mg/dL (6-20); CARBON DIOXIDE - CO2 30 mmol/L (21-32); CHLORIDE 99 mmol/L (101-111); CHOL/HDL RATIO 2.5 (<5.0); CHOLESTEROL 104 mg/dL; CREATININE 0.9 mg/dL (0.6-1.2); GFR - MDRD 82 (>89); GLUCOSE 101 mg/dL (70-100); HDL CHOLESTEROL 42 mg/dL; LDL CHOLESTEROL,CALCULATED 34 mg/dL; LDL/HDL RATIO 0.8 (<3.6); POTASSIUM 3.5 mmol/L (3.5-5.0); SODIUM 138 mmol/L (135-145); TRIGLYCERIDES 142 mg/dL; VLDL CHOLESTEROL 28 mg/dL
[2021-01-12 20:41] LABS: ESTIMATED AVERAGE GLUCOSE 169 mg/dL (70-100); HEMOGLOBIN A1c% 7.5 % (4.27-6.07)
== END 2021-01-12 13:24 | disposition home or self-care (01) ==
LOC: LAB.S 13:23 → DI.S 13:24
PROVIDERS: ATTEND Internal Medicine
DX: M16.0 Bilateral primary osteoarthritis of hip (principal); E11.9 Type 2 diabetes mellitus without complications; Z12.5 Encounter for screening for malignant neoplasm of prostate; Z79.899 Other long term (current) drug therapy
CPT/HCPCS: 36415; 73521; 80053; 80061; 83036; 85025; G0103; 83721; 84153

== ENCOUNTER 2021-04-13 10:29 | Outpatient (CLI) | payer MEDICARE, BC ==
[2021-04-13 14:51] LABS: BASOPHILS # (AUTO) 0.1 10^3/uL (0.0-0.1); BASOPHILS % (AUTO) 0.8 %; EOSINOPHILS # (AUTO) 0.1 10^3/uL (0.0-0.7); HCT - HEMATOCRIT 44.1 % (42.0-52.0); HGB - HEMOGLOBIN 15.3 g/dL (14.0-18.0); LYMPHOCYTES # (AUTO) 2.7 10^3/uL (1.5-3.5); LYMPHOCYTES % (AUTO) 29.5 %; MEAN CORPUSCULAR HEMOGLOBIN 31.2 pg (27.0-31.0); MEAN CORPUSCULAR HGB CONC 34.7 g/dL (32.0-36.0); MEAN CORPUSCULAR VOLUME 89.8 fL (80.0-94.0); MONOCYTES # (AUTO) 0.7 10^3/uL (0.0-1.0); MONOCYTES % (AUTO) 7.8 %; NEUTROPHILS # (AUTO) 5.5 10^3/uL (1.5-6.6); NEUTROPHILS % (AUTO) 60.6 %; PLT - PLATELET COUNT 197 10^3/uL (130-450); RED BLOOD COUNT 4.91 10^6/uL (4.70-6.10); RED CELL DISTRIBUTION WIDTH 13.2 % (12.0-15.0)
[2021-04-13 14:57] LABS: ALBUMIN 4.2 g/dL (3.2-5.5); ALBUMIN/GLOBULIN RATIO 1.4 (1.0-2.2); BILIRUBIN,TOTAL 1.2 mg/dL (0.2-1.0); CALCIUM 9.3 mg/dL (8.5-10.3); CREATININE 0.7 mg/dL (0.6-1.2); POTASSIUM 3.6 mmol/L (3.5-5.0); TOTAL PROTEIN 7.2 g/dL (6.7-8.2)
[2021-04-13 22:27] LABS: ESTIMATED AVERAGE GLUCOSE 177 mg/dL (70-100); HEMOGLOBIN A1c% 7.8 % (4.27-6.07)
== END 2021-04-13 10:30 | disposition home or self-care (01) ==
LOC: LAB.S 10:29
PROVIDERS: ATTEND Internal Medicine
DX: E11.9 Type 2 diabetes mellitus without complications (principal)
CPT/HCPCS: 36415; 80053; 83036; 85025

== ENCOUNTER 2021-04-20 06:25 | Day surgery (SDC) | payer MEDICARE, BC ==
[2021-04-20] MEDS ORDERED: LACTATED RINGERS 1,000 ML IV ONE ×2 (06:28→08:55)
[2021-04-20] MEDS ORDERED: LIDOCAINE-MPF 2% 5 ML VIAL ONE (07:13)
[2021-04-20] MEDS ORDERED: PROPOFOL 200 MG/20 ML VIAL IVP ONE (07:13)
[2021-04-20] MEDS ORDERED: SEVOFLURANE 250 ML LIQUID INH ONE (07:18)
[2021-04-20] MEDS ORDERED: ROCURONIUM 50 MG/5 ML VIAL ONE (07:29)
[2021-04-20] MEDS ORDERED: fentaNYL 100 MCG/2 ML VIAL ONE (07:29)
[2021-04-20] MEDS ORDERED: MIDAZOLAM 2 MG/2 ML VIAL ONE (07:29)
--- NOTE | 2021-04-20 07:35 | ANESTHESIA ---
Pre-Anesthesia VS, & Labs - Diagnosis anal fissure - Procedure anal dilation Height: 5 ft 7 in Weight (kg): 113 kg Body Mass Index: 38.9 BMI Classification: Obese - NPO >8 hours - Lab Results Current Lab Results: Laboratory Tests 04/20/21 07:10: POC Whole Bld Glucose 121 H Home Medications and Allergies Home Medications: Ambulatory Orders Chlorthalidone 25 mg PO DAILY 04/07/21 Insulin Glargine,Hum.rec.anlog [Basaglar Kwikpen U-100] 51 mg SQ DAILY 04/07/21 Losartan Potassium [Cozaar] 100 mg PO BID 04/07/21 Aspirin [Aspir 81] 81 mg PO QPM 07/16/14 Fenofibrate Nanocrystallized [Fenofibrate] 145 mg PO DAILY 12/03/16 Insulin Aspart [Novolog Flexpen] 9 - 13 unit SQ AC 04/06/17 Atorvastatin [Lipitor] 80 mg PO DAILY 02/21/20 Chlorthalidone 25 mg PO DAILY 04/07/21 Insulin Glargine,Hum.rec.anlog [Basaglar Kwikpen U-100] 51 mg SQ DAILY 04/07/21 Losartan Potassium [Cozaar] 100 mg PO BID 04/07/21 Allergies/Adverse Reactions: Allergies Allergy/AdvReac Type Severity Reaction Status Date / Time Horse/Equine Containing Allergy Respiratory Verified 02/21/20 07:03 Products metformin Allergy Edema Verified 02/21/20 07:03 Tetanus Vaccines and Toxoid Allergy Respiratory Verified 02/21/20 07:03 [Tetanus Vaccines & Toxoid] Anes History & Medical History - Anesthetic History Anesthesia Complications: reports: No previous complications - Medical History Cardiovascular: reports: Coronary artery disease, Other Pulmonary: reports: None Gastrointestinal: reports: Colon polyps, Chronic constipation Urinary: reports: None Neuro: reports: None Musculoskeletal: reports: None, Osteoarthritis, Fatigue, Chronic back pain Endocrine/Autoimmune: reports: Type 1 diabetes Blood Disorders: reports: None Skin: reports: Psoriasis, Other Smoking Status: Former smoker History of Cancer?: Yes - Surgical History General: reports: Cholecystectomy Eyes Ears Nose Throat (EENT): reports: Cataracts Cardiothoracic: reports: CABG Orthopedic: reports: Other Dermatologic: reports: Skin cancer surgery Exam General: Alert Dental: WNL Mouth Opening: Greater than 4 Fingerbreadths Mallampati classification: III Thyromental Distance: greater than 6 cm Respiratory: Lungs clear Cardiovascular: Regular rate Plan Anesthesia Type: General Consent for Procedure(s) Verified and Reviewed: Yes Code Status: Attempt Resuscitation ASA classification: 3-Severe systemic disease Is this case an emergency?: Yes
[2021-04-20] MEDS ORDERED: LIDOCAINE JELLY 2% 6 ML JEL.PF.APP ONE (07:42)
[2021-04-20] MEDS ORDERED: BUPIVACAINE 0.5% PF 10 ML VIAL ONE ×2 (07:43→08:23)
[2021-04-20] MEDS ORDERED: BUPIVACAINE 0.5% PF 10 ML VIAL SUBQ ONE (08:16)
[2021-04-20] MEDS ORDERED: SUGAMMADEX 200 MG/2 ML VIAL IVP ONE ×2 (08:26→08:55)
[2021-04-20] MEDS ORDERED: LIDOCAINE JELLY 2% 6 ML JEL.PF.APP TOP ONE (08:30)
[2021-04-20] MEDS ORDERED: ONDANSETRON 4 MG/2 ML VIAL ONE (08:31)
[2021-04-20] MEDS ORDERED: MORPHINE 2 MG/ML CARPUJECT IVP PRN (09:01)
[2021-04-20] MEDS ORDERED: HYDROmorphone 0.5 MG/0.5 ML SYRINGE IVP PRN ×2 (09:01→09:22)
[2021-04-20] MEDS ORDERED: METOCLOPRAMIDE 10 MG/2 ML VIAL IVP PRN (09:01)
[2021-04-20] MEDS ORDERED: ATROPINE ABBOJECT 1 MG/10 ML SYRINGE IVP PRN (09:01)
[2021-04-20] MEDS ORDERED: NALOXONE 0.4 MG/ML VIAL IVP PRN (09:01)
[2021-04-20] MEDS ORDERED: ONDANSETRON 4 MG/2 ML VIAL IVP PRN ×2 (09:01→09:22)
[2021-04-20] MEDS ORDERED: ePHEDrine 50 MG/ML VIAL IVP PRN (09:01)
[2021-04-20] MEDS ORDERED: fentaNYL 100 MCG/2 ML VIAL IVP PRN (09:01)
--- NOTE | 2021-04-20 09:03 | OPERATIVE REPORT ---
Operative Report - General Procedure Date: 04/20/21 Planned Procedure: Exam under anesthesia, anal fissurectomy, anal dilation Pre-Op Diagnosis: Anal stenosis, anal fissure Procedure Performed: Name under anesthesia, anal dilation, anal fissurectomy, hemorrhoidectomy Post Op Diagnosis: Same plus skin excoriation in the perianal area along with internal/externa - Procedure Note Primary Surgeon: Tonny Cruz MD Anesthesia Provider: Ana Chris CRNA Anesthesia Technique: General ET tube, Local (30 mL of half percent Marcaine) Pathology: Hemorrhoidal tissue IV Fluids (mL): 900 Estimated Blood Loss (mL): 2 Drain/Tube Type: Other (None.) Indications: As above. Findings: Significant excoriation in the perianal skin along with fissures at the 12 and 6 o'clock position. Hemorrhoids at the 10:00 and 2 o'clock position. Complications: None. - Other Other Information/Narrative: After verbal and written informed consent was obtained detailing the operation, the alternatives the operation including no operation, risks of infection, bleeding requiring transfusion with its risks, nerve injury, and and after I met with the patient confirming the surgery and the site of surgery, the patient was brought to the operative suite and placed supine on the operating table. Great care was taken to avoid pressure points to prevent pressure necrosis or nerve injury. Monitoring devices were applied. Ana Chris CRNA sedated and anesthetized the patient for the entire procedure. The patient was then placed in prone jackknife position and prepped and draped in the usual sterile manner. Again, great care was taken to avoid pressure points to prevent pressure necrosis or nerve injury. A "time in" then confirmed that the patient was identified with 3 identifiers (name, date, and medical record number), the history and physical was updated and in the chart, the signed consent confirming the procedure was in the chart, the patient was in the correct position, the aforementioned prophylactic measures were in place or given, we had the correct personnel and equipment to complete the procedure and that anesthesia and the surgical team were given an opportunity to express any concerns. With the agreement of everyone in the room we proceeded with the operation. The perianal skin was injected in a circumferential manner using half percent Marcaine to ensure usp anesthesia. Digital rectal examination was done progressively from 1 to 3 fingers gently to dilate the area. 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 More concerning was excoriation in the perianal skin. The hemorrhoids as they were larger than previously and were inflamed due to trying to keep the area clean were excised using serial application of a LigaSure. The fissures were excised using Bovie electrocautery. Once this was complete hemostasis was noted to be present and there was no other significant anal or distal rectal pathology noted. Again concerning was the excoriation of the skin perianally. A Gelfoam roll was come constructed using Gelfoam and lidocaine jelly and inserted into the patient's anus for long-term pain control as well as to absorb any blood that may be present. An ABD was placed exteriorly. At this point a timeout was performed that confirmed that all counts were correct x2, the procedure that was performed, the blood loss, the IV fluids administered, the patient's condition, and any concerns of the operating team had. Having tolerated the procedure well, the patient was taken recovery room in good and stable condition. The plan is for outpatient discharge when the patient is adequately recovered. This document was created in part using voice recognition technology. Because of the inherent limitations of the system, occasional same sounding word substitutions and grammatical errors do occur and persist despite proofreading. Please read this document for content.
--- NOTE | 2021-04-20 09:06 | ANESTHESIA POST OP EVALUATION ---
Anesthesia Post Eval - Post Anesthesia Eval Vitals: Last Vital Signs Temp Pulse 85 04/20/21 09:00 Resp 23 04/20/21 09:00 BP 116/85 H 04/20/21 09:00 Pulse Ox 95 04/20/21 09:00 CV Function Including HR & BP: Stable Pain Control: Satisfactory Nausea & Vomiting: Negative Mental Status: Baseline Respiratory Status: Airway Patent Hydration Status: Satisfactory Anesthesia Complications: None
[2021-04-20] MEDS ORDERED: HYDROcod/ACETAM 5/325 MG TABLET PO PRN (09:22)
[2021-04-20] MEDS ORDERED: LACTATED RINGERS 1,000 ML IV SCH (10:00)
[2021-04-20 10:31] VITALS: BP 122/72
== END 2021-04-20 06:26 | disposition home or self-care (01) ==
LOC: SDS 06:25
PROVIDERS: ATTEND Surgery
PROC: 0DBQ7ZZ Excision of Anus, Via Natural or Artificial Opening (ICD-10-PCS; principal; 2021-04-20 07:30)
DX: K60.2 Anal fissure, unspecified (principal); K62.4 Stenosis of anus and rectum; K64.8 Other hemorrhoids; K64.4 Residual hemorrhoidal skin tags; S30.817A Abrasion of anus, initial encounter; E66.9 Obesity, unspecified; Z68.38 Body mass index [BMI] 38.0-38.9, adult; Z87.891 Personal history of nicotine dependence
CPT/HCPCS: 46261; J3490; J7120

== ENCOUNTER 2021-07-09 13:01 | Outpatient (CLI) | payer MEDICARE, BC | END 2021-07-09 13:02 | disposition EMS.NT | LOC: EMS 13:01 | DX: R10.10 Upper abdominal pain, unspecified (principal) ==

== ENCOUNTER 2021-07-21 08:23 | Outpatient (CLI) | payer MEDICARE, BC ==
[2021-07-21 15:20] LABS: BASOPHILS # (AUTO) 0.1 10^3/uL (0.0-0.1); BASOPHILS % (AUTO) 0.7 %; EOSINOPHILS # (AUTO) 0.1 10^3/uL (0.0-0.7); EOSINOPHILS % (AUTO) 1.5 %; HGB - HEMOGLOBIN 15.2 g/dL (14.0-18.0); LYMPHOCYTES # (AUTO) 2.4 10^3/uL (1.5-3.5); LYMPHOCYTES % (AUTO) 28.2 %; MEAN CORPUSCULAR HEMOGLOBIN 30.7 pg (27.0-31.0); MEAN CORPUSCULAR HGB CONC 33.8 g/dL (32.0-36.0); MEAN CORPUSCULAR VOLUME 90.9 fL (80.0-94.0); MEAN PLATELET VOLUME 11.4 fL (7.4-11.4); MONOCYTES # (AUTO) 0.7 10^3/uL (0.0-1.0); MONOCYTES % (AUTO) 8.4 %; NEUTROPHILS # (AUTO) 5.1 10^3/uL (1.5-6.6); NEUTROPHILS % (AUTO) 60.8 %; PLT - PLATELET COUNT 192 10^3/uL (130-450); RED BLOOD COUNT 4.95 10^6/uL (4.70-6.10); WHITE BLOOD COUNT 8.5 x10^3/uL (4.8-10.8)
[2021-07-21 15:48] LABS: ALBUMIN/GLOBULIN RATIO 1.5 (1.0-2.2); BILIRUBIN,TOTAL 1.3 mg/dL (0.2-1.0); CALCIUM 9.7 mg/dL (8.5-10.3); CREATININE 0.6 mg/dL (0.6-1.2); POTASSIUM 3.5 mmol/L (3.5-5.0); TOTAL PROTEIN 6.7 g/dL (6.7-8.2)
[2021-07-21 20:12] LABS: ESTIMATED AVERAGE GLUCOSE 192 mg/dL (70-100); HEMOGLOBIN A1c% 8.3 % (4.27-6.07)
== END 2021-07-21 08:24 | disposition home or self-care (01) ==
LOC: LAB.S 08:23
PROVIDERS: ATTEND Internal Medicine
DX: E11.9 Type 2 diabetes mellitus without complications (principal)
CPT/HCPCS: 36415; 80053; 83036; 85025

== ENCOUNTER 2021-10-23 12:08 | Outpatient (CLI) | payer MEDICARE, BC ==
--- NOTE | 2021-10-23 18:08 | XRAY Report ---
PROCEDURE: Abdomen 2 View X-Ray INDICATIONS: EPIGASTRIC DISCOMFORT TECHNIQUE: 2 views of the abdomen were acquired. COMPARISON: None FINDINGS: Surgical changes and devices: Right upper quadrant vascular clips noted Bowel: No pneumoperitoneum. The bowel gas pattern is normal. Soft tissues: No masses; visualized solid organ contours appear normal in size. The described vascul ar calcification noted. Bones: No suspicious bony abnormalities. IMPRESSION: Nonobstructive bowel gas pattern Reviewed by: Davin Brian MD on 10/23/2021 5:06 PM [email or web address] Approved by: aDvin Brian MD on 10/23/2021 5:06 PM AKDT Station ID: [id number]
== END 2021-10-23 12:09 | disposition home or self-care (01) ==
LOC: DI.S 12:08
PROVIDERS: ATTEND Registered Nurse
DX: R10.13 Epigastric pain (principal)

== ENCOUNTER 2022-02-03 14:36 | Emergency (ER) | payer MEDICARE, BC ==
--- OUTSIDE RECORDS SUMMARY | 2022-02-03 14:45 | EXTERNAL MEDICAL SUMMARY RPT | Continuity of Care Document ---
:1945 Author Organization [facility] Address [address] [place] [address] Phone Care Team Providers Name Role Phone Mamadou Albaradoson Unavailable Unavailable Allergies No information. Encounters No information. Functional Status No information. Immunizations No information. Medications date description facility [id number]+0000 atorvastatin [facility] [phone]+0000 chlorthalidone [facility] [id number]+0000 chlorthalidone [facility] [id number]+0000 chlorthalidone [facility] [phone]+0000 chlorthalidone [facility] [phone]+0000 chlorthalidone [facility] [id number]+0000 chlorthalidone [facility] [id number]+0000 acetaminophen [facility] [id number]+0000 acetaminophen [facility] [id number]+0000 acetaminophen [facility] [id number]+0000 atorvastatin [facility] [id number]+0000 acetaminophen [facility] [id number]+0000 acetaminophen [facility] [id number]+0000 acetaminophen [facility] [phone]+0000 chlorthalidone [facility] [phone]+0000 chlorthalidone [facility] [id number]+0000 chlorthalidone [facility] [phone]+0000 atorvastatin [facility] [phone]+0000 chlorthalidone [facility] [id number]+0000 chlorthalidone [facility] [phone]+0000 chlorthalidone [facility] [phone]+0000 acetaminophen [facility] [id number]+0000 acetaminophen [facility] [phone]+0000 acetaminophen [facility] [id number]+0000 acetaminophen [facility] [id number]+0000 acetaminophen [facility] [phone]+0000 acetaminophen [facility] [phone]+0000 atorvastatin [facility] Problems No information. Procedures No information. Results/Labs No information. Social History No information. Vital Signs No information.
[2022-02-03] MEDS ORDERED: NITROGLYCERIN SL 0.4 MG TABLET SL STA ×2 (15:00→18:03)
[2022-02-03] MEDS ORDERED: ASPIRIN CHEW 81 MG TABLET PO STA (15:00)
[2022-02-03 15:04] LABS: BASOPHILS % (AUTO) 0.4 %; EOSINOPHILS # (AUTO) 0.1 10^3/uL (0.0-0.7); EOSINOPHILS % (AUTO) 0.6 %; HCT - HEMATOCRIT 44.3 % (42.0-52.0); HGB - HEMOGLOBIN 15.4 g/dL (14.0-18.0); LYMPHOCYTES # (AUTO) 1.9 10^3/uL (1.5-3.5); LYMPHOCYTES % (AUTO) 16.5 %; MEAN CORPUSCULAR HEMOGLOBIN 30.6 pg (27.0-31.0); MEAN CORPUSCULAR HGB CONC 34.8 g/dL (32.0-36.0); MEAN CORPUSCULAR VOLUME 88.1 fL (80.0-94.0); MEAN PLATELET VOLUME 10.3 fL (7.4-11.4); MONOCYTES # (AUTO) 0.9 10^3/uL (0.0-1.0); MONOCYTES % (AUTO) 8.3 %; NEUTROPHILS # (AUTO) 8.3 10^3/uL (1.5-6.6); NEUTROPHILS % (AUTO) 73.9 %; PLT - PLATELET COUNT 179 10^3/uL (130-450); RED BLOOD COUNT 5.03 10^6/uL (4.70-6.10); WHITE BLOOD COUNT 11.2 x10^3/uL (4.8-10.8)
--- NOTE | 2022-02-03 15:06 | ED Physician Documentation ---
History of Present Illness - Stated complaint Stated Complaint: CHEST PX - Chief complaint Chief Complaint: Cardiac - Additonal information Additional information: 76-year-old male presents emergency department with his for evaluation of a constant chest pain and pressure that he describes as a gnawing twisting sensation in his chest. Worse with exertion. He has a history of a four-vessel CABG in 2003. He is not currently followed by a water manager though he is currently scheduled to have an echo and stress test on February 12. Yesterday to try and resolve the symptoms he did drink some viscous lidocaine and drink extra water but reports it did not help. He has had no cough or fevers. No vomiting or diaphoresis. PSH: CAD, HTN PSH: cholecystectomy Meds: Chlorthalidone, losartan, atorvastatin, aspirin, insulins Review of Systems Constitutional: reports: Reviewed and negative Cardiac: reports: Chest pain / pressure. denies: Palpitations, Pedal edema, Ca lf pain Respiratory: reports: Reviewed and negative GI: denies: Nausea : reports: Reviewed and negative Skin: reports: Reviewed and negative Musculoskeletal: reports: Reviewed and negative PD PAST MEDICAL HISTORY - Past Medical History Cardiovascular: Coronary artery disease, Other Respiratory: None Neuro: None Endocrine/Autoimmune: Type 1 diabetes GI: Colon polyps, Chronic constipation : None HEENT: Chronic vision loss Psych: Depression, Anxiety, Claustrophobia Musculoskeletal: None, Osteoarthritis, Fatigue, Chronic back pain Derm: Psoriasis, Other - Past Surgical History General: Cholecystectomy Ortho: Other Cardiovascular: CABG HEENT: Cataracts Derm: Skin cancer surgery - Present Medications Home Medications: Ambulatory Orders Medication Instructions Recorded Confirmed Aspirin [Aspir 81] 81 mg PO QPM 07/16/14 04/07/21 Fenofibrate Nanocrystallized 145 mg PO DAILY 12/03/16 04/07/21 [Fenofibrate] Insulin Aspart [Novolog Flexpen] 9 - 13 unit SQ AC 04/06/17 04/07/21 Atorvastatin [Lipitor] 80 mg PO DAILY 02/21/20 04/07/21 Chlorthalidone 25 mg PO DAILY 04/07/21 04/07/21 Insulin Glargine,Hum.rec.anlog 51 mg SQ DAILY 04/07/21 04/07/21 [Basaglar Kwikpen U-100] Losartan Potassium [Cozaar] 100 mg PO BID 04/07/21 04/07/21 Docusate Sodium 250Mg Capsule 250 mg PO DAILY #10 cap 04/20/21 [Colace 250Mg Capsule] HYDROcod/ACETAM 5/325 [[place] 5/325] 1 each PO Q4H #20 tablet 04/20/21 Nitroglycerin [Nitrostat] 0.4 mg SL Q5MIN PRN #25 tablet 02/03/22 Pantoprazole [Protonix] 40 mg PO DAILY #30 tablet 02/03/22 - Allergies Allergies/Adverse Reactions: Allergies Allergy/AdvReac Type Severity Reaction Status Date / Time Horse/Equine Containing Allergy Respiratory Verified 02/03/22 14:47 Products metformin Allergy Edema Verified 02/03/22 14:47 Tetanus Vaccines and Toxoid Allergy Respiratory Verified 02/03/22 14:47 [Tetanus Vaccines & Toxoid] - Social History Does the pt smoke?: No Smoking Status: Former smoker Does the pt drink ETOH?: Yes Does the pt have substance abuse?: No - Immunizations Immunizations are current?: Yes - POLST Patient has POLST: Yes POLST Status: Full Code PD ED PE NORMAL - General General: Alert and oriented X 3, No acute distress, Well developed/nourished (Obese) - HEENT HEENT: Atraumatic, Moist mucous membranes - Neck Neck: Supple, no meningeal sign, No adenopathy - Cardiac Cardiac: RRR, No murmur - Respiratory Respiratory: No respiratory distress, Clear bilaterally - Abdomen Abdomen: Normal bowel sounds, Soft, Non tender, Non distended Results - Vitals Vitals: Vital Signs - 24 hr 02/03/22 02/03/22 02/03/22 14:39 15:17 15:30 Temperature 36.2 C L Heart Rate 86 81 75 Respiratory 20 17 19 Rate Blood Pressure 154/69 H 152/64 H 126/70 O2 Saturation 98 96 97 02/03/22 02/03/22 02/03/22 16:00 16:30 17:00 Temperature 36.3 C L Heart Rate 76 74 73 Respiratory 17 20 Rate Blood Pressure 126/78 143/64 H O2 Saturation 97 97 96 02/03/22 17:30 Temperature Heart Rate 78 Respiratory 18 Rate Blood Pressure 150/76 H O2 Saturation 96 Oxygen O2 Source Room air - EKG (time done) 1440 Rate: Rate (enter#) (83) Rhythm: NSR, Other (Recurrent unifocal PVCs) Intervals: Normal ID, RBBB. No: Prolonged QT Ischemia: Non specific changes Compare to prior EKG: Unchanged from prior EKG Computer interpretation: Agree with computer - Labs Labs: Laboratory Tests 02/03/22 02/03/22 02/03/22 14:58 14:58 14:58 WBC 11.2 H RBC 5.03 Hgb 15.4 Hct 44.3 MCV 88.1 MCH 30.6 MCHC 34.8 RDW 13.0 Plt Count 179 MPV 10.3 Neut # (Auto) 8.3 H Lymph # (Auto) 1.9 [facility] # (Auto) 0.9 Eos # (Auto) 0.1 Baso # (Auto) 0.0 Absolute Nucleated RBC 0.00 Nucleated RBC % 0.0 Sodium 134 L Potassium 3.3 L Chloride 95 L Carbon Dioxide 30 Anion Gap 9.0 BUN 23 H Creatinine 0.9 Estimated GFR (MDRD) 82 L Glucose 231 H Calcium 9.6 Total Bilirubin 3.8 H AST 559 H ALT 490 H Alkaline Phosphatase 171 H Troponin I High Sens 15.2 B-Natriuretic Peptide Total Protein 7.4 Albumin 4.1 Globulin 3.3 Albumin/Globulin Ratio 1.2 Lipase 86 H 02/03/22 02/03/22 16:51 16:51 WBC RBC Hgb Hct MCV MCH MCHC RDW Plt Count MPV Neut # (Auto) Lymph # (Auto) [facility] # (Auto) Eos # (Auto) Baso # (Auto) Absolute Nucleated RBC Nucleated RBC % Sodium Potassium Chloride Carbon Dioxide Anion Gap BUN Creatinine Estimated GFR (MDRD) Glucose Calcium Total Bilirubin AST ALT Alkaline Phosphatase Troponin I High Sens 15.2 B-Natriuretic Peptide 24 Total Protein Albumin Globulin Albumin/Globulin Ratio Lipase - Rads (name of study) abd US Radiology: See rad report, Other (Per extractions technologist no findings to suggest biliary obstruction. CBD measures at 6.5 mm) cxr Radiology: Final report received (Mildly increased vascular congestion suggestive of edema) CT abd w Radiology: Final report received (Gastritis and duodenitis with moderately fluid-filled stomach and potential wall thickening. Incidental note made of sternotomy wires. At least moderate coronary artery calcification. Cholecystectomy. Fat-containing periumbilical hernia. Fat-containing inguinal hernias bilaterally, prostate lar) PD MEDICAL DECISION MAKING - ED course Complexity details: reviewed old records, reviewed results, re-evaluated patient, considered differential, d/w patient ED course: 76-year-old male comes the emergency department for evaluation of a 9 chest pain in his chest that been present now for about 2 days. It is worse with exertion. He attempted to take viscous lidocaine for resolution of symptoms but it was not helpful. He also reports that over the last few months he is frequently bloated and has belching episodes. He did undergo a cholecystectomy within this last year with Dr. White's office. On presentation to the emergency department he is alert and well-appearing. He is complaining of active chest pain and is hypertensive. His EKG was nonischemic and essentially unchanged from our most recent 1 a number of years ago. However he does have a history of a four-vessel CABG completed in 2003. I did load him with 325 mg of aspirin as well as give him a single dose of nitroglycerin which he reports fully resolved the chest pain. I did do a second troponin about 2 hours after arrival and it remained nonelevated. I am quite concerned that this could be an anginal equivalent. I did attempt to contact [facility] cardiology where the patient is scheduled to undergo an echocardiogram and a stress test within the next 10 days time but he needed to leave the emergency department before the consult could be completed. However he will be started on nitroglycerin as needed and he will continue the rest of his previously scheduled medications. He did leave AGAINST MEDICAL ADVICE. In addition to the above labs today in the emergency department showed markedly abnormal liver function tests over the last 6 months. He has a bilirubin of 3.8 and AST and ALTs in the 450s and 500s. He has NO abdominal tenderness elicited. An abdominal ultrasound did not reveal an etiology to suggest biliary obstruction. A CT scan with contrast also showed no significant findings around the liver that could suggest a cause for the abnormal LFTs. It did however show duodenitis. This could explain the patient's belching and bloating over the last few months. Patient was administered Protonix here in the emergency department and will be discharged with a prescription for Protonix. He does have an appointment scheduled with Brittanie Esparza in follow-up and I am encouraging him to continue closely with this. I would like him to have his LFTs repeated within the next week. We also discussed emergent and worrisome return precautions for melena, worsening abdominal pain, unresolved chest pain a nd any other emergent concerns. Departure - Departure Disposition: Against Medical Advice Clinical Impression: Duodenitis, Abnormal LFTs (liver function tests), Exertional angina Chest pain Qualifiers: Chest pain type: unspecified Qualified Code(s): R07.9 - Chest pain, unspecified Condition: Stable Record reviewed to determine appropriate education?: Yes Instructions: Nitroglycerin Fast Act Dc Follow-Up: Krystina Esparza ARNP [Primary Care Provider] - Tonny Cruz MD [Provider Admit Priv/Credential] - Prescriptions: Nitroglycerin [Nitrostat] 0.4 mg SL Q5MIN PRN #25 tablet PRN Reason: Chest Pain Pantoprazole [Protonix] 40 mg PO DAILY #30 tablet Comments: Obed are seen today in the emergency department for 2 days of a gnawing pain in your chest. It gets worse with activity. Here in the emergency department your biomarkers or troponin were negative. However we gave you a medication called nitroglycerin which made your chest pain go away. I am concerned that the type of chest pain you are having is due to a condition called angina. You are scheduled to have an echocardiogram and a stress test on the . I did attempt to get In touch with cardiology at [facility] to discuss your case however you needed to leave before I was able to do this. You are therefore leaving AGAINST MEDICAL ADVICE but you are welcome to return at any point. In order to help manage your chest pain I am prescribing you a medication called nitroglycerin. This can be taken under the tongue with chest pain every 15 minutes for total of 3 doses. If you find it does not relieve your symptoms you must return immediately to the emergency department. Do not miss the scheduled appointments for your echocardiogram and stress test. Here in the emergency department we did obtain labs that showed very abnormal liver function tests including an elevated bilirubin, ALT and AST. We did an ultrasound as well as a CAT scan of your abdomen and do not have any clear reason for the abnormalities. I would like you to discuss this with either Dr. White's office or Brittanie Ascencio. You may benefit from referral to a pool finisher for reevaluation of your liver function tests but I would like them repeated next week anyway just to ensure that they are not worsening. Finally the CAT scan that we did of your abdomen did show a condition called duodenitis which is inflammation of the first part of the lower intestine. This can explain some of the bloating that you have been having. You would benefit from having an EGD completed to further determine if you are developing ulcers. This does put you at risk for gastric perforation which is a condition in which a hole can form in the lining of your stomach or the first part of your intestine. To help manage this I would like you to fill the prescription for the Protonix and begin taking as directed. It is important that you avoid caffeine, spicy foods or excessive use of NSAID medications such as ibuprofen or Aleve. You can continue to take your daily 81 mg aspirin. If at any point you develop black or bloody stools, have fevers, uncontrolled vomiting, uncontrolled chest pain, sudden severe or different symptoms then please return immediately to the ER.
[2022-02-03 15:23] LABS: ALBUMIN 4.1 g/dL (3.2-5.5); ALBUMIN/GLOBULIN RATIO 1.2 (1.0-2.2); BILIRUBIN,TOTAL 3.8 mg/dL (0.2-1.0); CALCIUM 9.6 mg/dL (8.5-10.3); CREATININE 0.9 mg/dL (0.6-1.2); POTASSIUM 3.3 mmol/L (3.5-5.0); TOTAL PROTEIN 7.4 g/dL (6.7-8.2)
[2022-02-03] MEDS ORDERED: iohexoL-300 100 ML VIAL ONE (16:01)
--- NOTE | 2022-02-03 16:02 | XRAY Report ---
PROCEDURE: Chest 1 View X-Ray INDICATIONS: Chest pain TECHNIQUE: One view of the chest was acquired. COMPARISON: Chest x-ray 03/30/2019 FINDINGS: Surgical changes and devices: Sternal wires. Lungs and pleura: No pleural effusions or pneumothorax. Mild increased vascularity. Mediastinum: Mediastinal contours appear normal. Heart size is normal. Bones and chest wall: No suspicious bony lesions. Overlying soft tissues appear unremarkable. IMPRESSION: Mild increased vascular suggestive of edema. Reviewed by: Alice Vaz MD on 02/03/2022 4:01 PM PDT Approved by: Alice Vaz MD on 02/03/2022 4:01 PM PDT Station ID: [id number]
[2022-02-03] MEDS ORDERED: iohexoL-300 100 ML VIAL IVP ONE (16:48)
--- NOTE | 2022-02-03 16:50 | Ultrasound Report ---
PROCEDURE: Abdomen Limited INDICATIONS: abnormal LFT TECHNIQUE: Real-time focused scanning was performed of the abdomen, with image documentation. COMPARISON: CT abdomen pelvis without contrast 09/09/2014. FINDINGS: Liver length of 16.9 cm. The liver is echogenic. Main portal vein is patent with antegrade flow. Prior cholecystectomy. No biliary ductal dilation. Extra hepatic duct measures 6 mm. Visualized pancreas is unremarkable. Right renal length of 13.3 cm, no right hydronephrosis or evidence of right nephrolithiasis. IMPRESSION: 1. Prior cholecystectomy. No biliary ductal dilation demonstrated. 2. The liver is echogenic, a nonspecific finding commonly seen in the setting of steatosis. Reviewed by: Abhay Lewis MD on 02/03/2022 4:48 PM PDT Approved by: Abhay Lewis MD on 02/03/2022 4:48 PM PDT Station ID: [id number]
--- NOTE | 2022-02-03 17:13 | CT Report ---
PROCEDURE: ABDOMEN/PELVIS W INDICATIONS: abd lft's hx of cholecystectomy CONTRAST: 100ml omnipaque 300 TECHNIQUE: After the administration of IV contrast, 5 mm thick sections acquired from the diaphragms to the symp hysis. 5 mm thick coronal and sagittal reformats were acquired. For radiation dose reduction, the f ollowing was used: automated exposure control, adjustment of mA and/or kV according to patient size. COMPARISON: Correlation is made with the accompanying ultrasound, 02/03/2022. Prior abdomen and pelv is CT, 09/09/2014 FINDINGS: Image quality: Excellent. ABDOMEN: Lung bases: Lung bases are clear. Heart size is normal. At least moderate coronary calcification i s seen. Sternotomy wires are partially seen. Solid organs: Liver and spleen are normal in size and enhancement. Gallbladder has been removed. B iliary system is non dilated. Pancreas enhances normally. No adrenal nodules. Kidneys demonstrate normal size and enhancement, without hydronephrosis. Peritoneum and bowel: The stomach is moderately fluid distended and there is apparent thickening see n involving the distal stomach. Moderate wall thickening is also seen involving the duodenum. Bowel loops otherwise demonstrate normal wall thickness and caliber. No free fluid or air. A normal appendix is seen. Nodes and vessels: No retroperitoneal or mesenteric adenopathy by size criteria. Aorta and inferior vena cava are normal in size. Miscellaneous: There is a moderate fat-containing periumbilical hernia present. PELVIS: Genitourinary: Bladder wall thickness is normal. The prostate is enlarged, measuring 5.8 cm transve rsely. Miscellaneous: No inguinal adenopathy. Fat-containing inguinal hernias are seen. Bones: No suspicious bony lesions. No vertebral body compression fractures. Age-appropriate degene rative changes are seen. IMPRESSION: Potential gastritis and duodenitis, with a moderately fluid distended stomach and potential wall thic kening involving the distal stomach. Incidental note is made of: Sternotomy wires At least moderate coronary artery calcification. Cholecystectomy Moderate fat-containing periumbilical hernia Normal appendix Bilateral fat-containing inguinal hernias Prominent prostate Reviewed by: Kaleb Spivey MD on 02/03/2022 4:12 PM AKDT Approved by: Kaleb Spivey MD on 02/03/2022 4:12 PM AKDT Station ID: [id number]
[2022-02-03] MEDS ORDERED: PANTOPRAZOLE 40 MG VIAL IVP STA (17:29)
[2022-02-03 18:46] VITALS: BP 128/75
== END 2022-02-03 18:47 | disposition left against medical advice (07) ==
LOC: ED 14:36
DX: K29.80 Duodenitis without bleeding (principal); R94.5 Abnormal results of liver function studies; I20.9 Angina pectoris, unspecified; Z87.891 Personal history of nicotine dependence
CPT/HCPCS: 36415; 71045; 74177; 76705; 80053; 83690; 83880; 84484; 85025; 93005; 96374; 99284; A9270; Q9967

== ENCOUNTER 2022-04-20 10:27 | Outpatient (CLI) | payer MEDICARE, BC ==
[2022-04-20 15:19] LABS: ALBUMIN 4.1 g/dL (3.2-5.5); ALBUMIN/GLOBULIN RATIO 1.4 (1.0-2.2); CALCIUM 9.3 mg/dL (8.5-10.3); CREATININE 0.9 mg/dL (0.6-1.2); POTASSIUM 3.4 mmol/L (3.5-5.0)
== END 2022-04-20 10:28 | disposition home or self-care (01) ==
LOC: LAB.S 10:27
PROVIDERS: ATTEND Registered Nurse
DX: R10.13 Epigastric pain (principal)
CPT/HCPCS: 36415; 80053

== ENCOUNTER 2022-05-21 08:45 | Outpatient (CLI) | payer MEDICARE, BC ==
[2022-05-21 15:09] LABS: BASOPHILS # (AUTO) 0.1 10^3/uL (0.0-0.1); BASOPHILS % (AUTO) 0.8 %; EOSINOPHILS # (AUTO) 0.1 10^3/uL (0.0-0.7); EOSINOPHILS % (AUTO) 0.9 %; HCT - HEMATOCRIT 43.2 % (42.0-52.0); HGB - HEMOGLOBIN 14.5 g/dL (14.0-18.0); LYMPHOCYTES # (AUTO) 2.3 10^3/uL (1.5-3.5); LYMPHOCYTES % (AUTO) 25.6 %; MEAN CORPUSCULAR HEMOGLOBIN 30.9 pg (27.0-31.0); MEAN CORPUSCULAR HGB CONC 33.6 g/dL (32.0-36.0); MEAN CORPUSCULAR VOLUME 92.1 fL (80.0-94.0); MONOCYTES # (AUTO) 0.7 10^3/uL (0.0-1.0); NEUTROPHILS # (AUTO) 5.7 10^3/uL (1.5-6.6); NEUTROPHILS % (AUTO) 64.5 %; PLT - PLATELET COUNT 197 10^3/uL (130-450); RED BLOOD COUNT 4.69 10^6/uL (4.70-6.10); RED CELL DISTRIBUTION WIDTH 12.7 % (12.0-15.0); WHITE BLOOD COUNT 8.9 x10^3/uL (4.8-10.8)
[2022-05-21 15:55] LABS: THYROID STIMULATING HORMONE 2.16 uIU/mL (0.34-5.60)
[2022-05-21 15:58] LABS: ALBUMIN/GLOBULIN RATIO 1.3 (1.0-2.2); ALKALINE PHOSPHATASE 79 IU/L (42-121); ALT ALANINE AMINOTRANSFERASE 29 IU/L (10-60); AST ASPARTATE AMINOTRANSFERASE 25 IU/L (10-42); BILIRUBIN,TOTAL 1.5 mg/dL (0.2-1.0); BUN - BLOOD UREA NITROGEN 26 mg/dL (6-20); CALCIUM 9.5 mg/dL (8.5-10.3); CARBON DIOXIDE - CO2 26 mmol/L (21-32); CHLORIDE 100 mmol/L (101-111); CHOL/HDL RATIO 2.7 (<5.0); CHOLESTEROL 108 mg/dL; CREATININE 0.7 mg/dL (0.6-1.2); GFR - MDRD 110 (>89); GLUCOSE 133 mg/dL (70-100); HDL CHOLESTEROL 40 mg/dL; LDL CHOLESTEROL,CALCULATED 60 mg/dL; LDL/HDL RATIO 1.5 (<3.6); MAGNESIUM 1.8 mg/dL (1.7-2.8); POTASSIUM 3.5 mmol/L (3.5-5.0); SODIUM 137 mmol/L (135-145); TOTAL PROTEIN 7.1 g/dL (6.7-8.2); TRIGLYCERIDES 42 mg/dL; VLDL CHOLESTEROL 8 mg/dL
[2022-05-21 16:51] LABS: INR 1.2 (0.8-1.2); PT - PROTHROMBIN TIME 13.3 secs (9.9-12.6)
[2022-05-21 21:13] LABS: ESTIMATED AVERAGE GLUCOSE 174 mg/dL (70-100); HEMOGLOBIN A1c% 7.7 % (4.27-6.07)
== END 2022-05-21 08:46 | disposition home or self-care (01) ==
LOC: LAB.S 08:45
PROVIDERS: ATTEND Internal Medicine Cardiovascular Disease
DX: I10 Essential (primary) hypertension (principal); E78.5 Hyperlipidemia, unspecified; I25.10 Atherosclerotic heart disease of native coronary artery without angina pectoris; Z13.29 Encounter for screening for other suspected endocrine disorder; E11.9 Type 2 diabetes mellitus without complications; R07.9 Chest pain, unspecified
CPT/HCPCS: 36415; 80053; 80061; 83036; 83721; 83735; 84443; 85025; 85610

== ENCOUNTER 2022-09-17 11:37 | Outpatient (CLI) | payer MEDICARE, BC | END 2022-09-17 23:59 | disposition E | LOC: EMS 11:37 | CPT/HCPCS: A0425; A0428 ==